=== PATIENT | male | born 1960 | race Hispanic/Latino ===

== ENCOUNTER 2016-12-09 07:10 | Day surgery (SDC) | payer MEDICARE ==
[2016-12-07 14:35] VITALS: BMI 19.1
[2016-12-09 08:38] VITALS: O2SAT 96
[2016-12-09] MEDS ORDERED: Bupivacaine 0.5% Inj(30mL) ONE (09:16)
[2016-12-09] MEDS ORDERED: MethylPREDNISolone Depo 40 mg/ml Inj ONE (09:16)
[2016-12-09] MEDS ORDERED: Iohexol 240 (50 ml) ONE (09:17)
[2016-12-09] MEDS ORDERED: Lidocaine 2% Inj (20ml) ONE (09:17)
[2016-12-09] MEDS ORDERED: Midazolam 2 MG/2 ML VIAL ONE ×2 (09:41→09:59)
[2016-12-09] MEDS ORDERED: Lactated Ringer's 1,000 ML IV ONE ×2 (09:42→10:08)
[2016-12-09] MEDS ORDERED: ceFAZolin IV 2 gm in Dextrose 1 GM/50 ML BAG IVPB ONE (09:55)
[2016-12-09] MEDS ORDERED: Oxycodone/Acetaminophen 5/325 mg Tab PO PRN (10:23)
--- NOTE | 2016-12-09 10:27 | PCM.SURG1 ---
Surgeon's Initial Post Op Note - Surgeon's Notes Surgeon: Maikol Du MD Slip Filler: None Type of Anesthesia: IV Sedation, Local Pre-Operative Diagnosis: Right hip #1 severe DJD. #2 GT bursitis Operative Findings: Right hip #1 severe DJD. #2 GT bursitis Post-Operative Diagnosis: Right hip #1 severe DJD. #2 GT bursitis Operation Performed: Right hip injection under flouorscopic guidance at. #1 intra-articular hip joint. #2 GT bursa Specimen/Specimens Removed: Specimen= none. complications= none. Injection contents= 2cc 2% lido w/o epi PF, 2cc 0.5% marcaine w/o epi PF, 80mg depo in 1cc Estimated Blood Loss: EBL {In ML}: 0 Blood Products Given: N/A Drains Used: No Drains Post-Op Condition: Good Date of Surgery/Procedure: 12/09/16 Time of Surgery/Procedure: 10:28
[2016-12-09 11:54] VITALS: BP 125/86; PULSE 78; RESP 18; TEMP 97.8
--- NOTE | 2016-12-10 10:27 | OP ---
PROCEDURE DATE: 12/09/2016 PREOPERATIVE DIAGNOSES: Right hip, 1. Severe degenerative joint disease. 2. Greater trochanteric bursitis. POSTOPERATIVE DIAGNOSES: Right hip, 1. Severe degenerative joint disease. 2. Greater trochanteric bursitis. PROCEDURES: Right hip injection under fluoroscopic guidance to; 1. Intraarticular hip injection. 2. Greater trochanteric bursa injection. SURGEON: Maikol Du M.D. BUSINESS PROFESSOR: None. TYPE OF ANESTHESIA: IV sedation with local anesthetic applied by surgeon. SPECIMEN: None. COMPLICATIONS: None. DRAINS: None. ESTIMATED BLOOD LOSS: 1 mL. DISPOSITION: The patient was awakened from IV sedation, transferred to the PACU in stable condition. He tolerated the procedure well. INJECTION CONTENT: Two injections in total were given, one localized to the intraarticular position of the hip joint and one localized to the greater trochanteric bursa; both containing a total of 5 mL which contained 2 mL of 2% lidocaine without epinephrine preservative free/2 mL of 0.5% Marcaine without epinephrine preservative free/80 mg of Depo-Medrol in 1 mL for a total of 5 mL mixture for the injection for both locations. INDICATIONS FOR PROCEDURE: The patient is a 56-year-old male with a past medical history significant for hypertension, diabetes, and hypercholesterolemia. He presents to the office for the first time under my care on 08/29/2016 with right hip pain, progressively worsening over the past few months prior to presentation in the office, but he noted pain started approximately 2 years ago. On his initial presentation in the office, he rated his right hip pain as 7/10 at rest and 10/10 with increased activity and motion. He localized the pain to two locations, one at the greater trochanteric bursa and the other location was in the groin representing the intraarticular hip joint itself. In the office, on initial presentation, he underwent x-rays of the right hip which showed severe degenerative joint disease. Physical examination revealed pain localized to the greater trochanteric bursa as well as the groin with limited range of motion of the hip from 0 to 90 degrees flexion with pain, past 90 degrees of flexion, 0 degrees of internal rotation due to pain, 10 degrees of external rotation, 10 degrees of abduction and 0 degrees of adduction allowed due to pain. He underwent injection in the office to the right hip greater trochanteric bursa on 08/29/2016 and 10/20/2016 office visits. Both visits had complete resolution of his greater trochanteric bursa pain after administration of the injection with remaining 7/10 groin pain and limited motion. We had a long discussion about treatment options which included total hip arthroplasty versus fluoroscopic-guided hip injections. The patient is very poor dentition and has not undergone injections in the past, so therefore we decided to proceed with the more conservative treatment option. He was indicated for right hip fluoroscopic-guided intraarticular injection with cortisone mixture/Depo-Medrol mixture as well as injection to the greater trochanteric bursa in the same setting under sedation. He was referred to his primary care physician, Dr. Nora Logan for preoperative medical evaluation and clearance and the procedure was scheduled at [facility]. CONTINUATION OF PROCEDURE: The patient was identified in the perioperative holding area and the right hip was marked for surgery. The risks, benefits, and alternative of the procedure were discussed in length with the patient with the risk including not limited to infection, neurovascular damage, anesthesia reactions, allergic reactions, synovitis, development of blood clots including DVT and PE, development of chronic pain and disability, increasing pain, anesthesia reactions including . After answering all of his questions, the patient understood the risk and wished to proceed with surgery and informed consent was obtained. In the office, on his preoperative visit and in the visits prior, the patient had watched the surgical animation videos and diagnosis animation videos and had a good understanding to what his diagnosis was as well as the two injections under fluoroscopic guidance. After brief discussion with anesthesia staff, perioperative IV antibiotics in the form of 2 g of Ancef were administered. The patient was taken to the operating room and placed in a well-padded operating room table that was radiolucent. An initial time-out was done with the surgeon, anesthesia staff, and OR staff, and all are in agreement with the patient, procedure to be done, and extremity to be operated on. IV sedation was administered without difficulty or complication. The right hip was prepped and draped in standard sterile fashion. Anatomical landmarks including the ASIS and greater trochanter were palpated and outlined and confirmed with fluoroscopic imaging. A final time-out was done with the surgeon, anesthesia staff, and OR staff, and all are in agreement with the patient, procedure to be done, and extremity to be operated on. A line was drawn down the long axis of the leg starting at the ASIS and a line was drawn perpendicular to the long axis of the leg starting at the tip of the greater trochanter. Care was taken to stay in the upper outer quadrant of this intersecting line to minimize the risk of neurovascular injury. Optimal entry point for the spinal needle was identified and confirmed in the upper outer quadrant. A 10 mL of 2% lidocaine without epinephrine preservative free were used to provide local anesthetic at the injection site. Once the local anesthetic had taken affect after a few minutes, the spinal needle was advanced through the skin up to the superior femoral head neck junction under fluoroscopic guidance. With the use of a 1:1 mixture of radiopaque contrast with 2% lidocaine without epinephrine preservative free, 2 mL of the contrast lidocaine mixture were injected intraarticular to confirm an intraarticular position to the spinal needle. A positive ring sign appeared and the contrast did pour on the inferior aspect of the hip joint. The spinal needle position was confirmed to be intraarticular and all excess contrast was aspirated from the hip joint and the final injection contents were injected with a 5 mL in total consisting of 2 mL of 2% lidocaine without epinephrine preservative free, 2 mL of 0.5% Marcaine without epinephrine preservative free, 1 mL of 80 mg of Depo-Medrol all injected in its entirety intraarticularly. Once the injection was complete, the spinal needle was removed and attention was then turned towards to the greater trochanteric bursa injection. The greater trochanter was palpated and with fluoroscopic imaging, the spinal needle was advanced and localized through palpation over the greater trochanter to confirm the fluoroscopic imaging and a second injection was given at the level of the greater trochanteric bursa along the lateral aspect of the greater trochanter, 5 mL in total consisting of 2 mL of 2% lidocaine without epinephrine preservative free/2 mL of 0.5% Marcaine without epinephrine preservative free/1 mL of 80 mg of Depo-Medrol were injected in its entirety and the spinal needle was removed. The two injection sites were then wiped dry and a sterile dressing was applied. The patient was then awakened from IV sedation, transferred to the PACU in stable condition. He tolerated the procedure well. I evaluate the patient in PACU and he has 0/10 pain rating to the greater trochanteric bursa or to the groin with ability to have, although limited range of motion without pain from 0 to 100 degrees flexion, 5 degrees internal rotation, 10 degrees external rotation, 20 degrees abduction and 10 degrees adduction with mechanical stop due to his advanced degenerative joint disease. Once again, we had successful response to both the greater trochanteric bursa injection and the intraarticular hip injection. DISPOSITION: The patient will be discharged home when he is recovered from his anesthesia. He is under the care of the crayon painter, Dr. Freddy Guthrie, who is providing him with pain medications in the form of Vicodin 10/325 which he will continue to use and has been advised that there may be a flare up of pain after local anesthetic wears off later tonight. He will be weightbearing as tolerated to the right lower extremity with no restrictions. He will follow up in my office in [facility] next week on Monday at 8 a.m., already has this postoperative appointment setup. He will contact me directly if there are any questions or concerns. Maikol Du MD
== END 2016-12-09 12:05 | disposition home or self-care (01) ==
LOC: C.SDS 07:10
PROVIDERS: ATTEND Student in an Organized Health Care Education/Training Program
DX: M16.11 Unilateral primary osteoarthritis, right hip (principal); M70.61 Trochanteric bursitis, right hip
CPT/HCPCS: 20610; 82948; J1030; J2250; J3010; J7120

== ENCOUNTER 2017-02-08 08:14 | Day surgery (SDC) | payer MEDICARE ==
[2016-12-07 14:35] VITALS: BMI 19.1
[2017-02-08 10:13] VITALS: RESP 18; TEMP 97.6
[2017-02-08] MEDS ORDERED: Bupivacaine HCl 0.25% PF (10 ml) Inj ONE ×2 (10:36→11:35)
[2017-02-08] MEDS ORDERED: Iohexol 240 (50 ml) ONE (10:37)
[2017-02-08] MEDS ORDERED: MethylPREDNISolone Depo 40 mg/ml Inj ONE ×2 (10:37→11:33)
[2017-02-08] MEDS ORDERED: Lactated Ringer's 1,000 ML IV ONE (11:35)
[2017-02-08] MEDS ORDERED: Midazolam 2 MG/2 ML VIAL ONE ×2 (11:38→11:44)
[2017-02-08] MEDS ORDERED: Propofol 10 mg/ml Inj (20 ML) ONE (11:44)
[2017-02-08 12:17] VITALS: O2SAT 100
[2017-02-08 12:27] VITALS: BP 136/80; PULSE 90
--- NOTE | 2017-02-08 13:14 | RAD ---
PROCEDURE: Intraoperative Fluoroscopy. HISTORY: LUMBAR RADCULOPATHY FINDINGS: Fluoroscopic assistance was provided for L4-5 S1 nerve block. Please
== END 2017-02-08 12:28 | disposition home or self-care (01) ==
LOC: C.SDS 08:14
PROVIDERS: ATTEND Anesthesiology Pain Medicine
DX: M51.16 Intervertebral disc disorders with radiculopathy, lumbar region (principal); E11.9 Type 2 diabetes mellitus without complications; I10 Essential (primary) hypertension; J45.909 Unspecified asthma, uncomplicated; F17.200 Nicotine dependence, unspecified, uncomplicated; Z79.84 Long term (current) use of oral hypoglycemic drugs; Z79.82 Long term (current) use of aspirin
CPT/HCPCS: 62323; 76000; 82948; J1030; J2250; J2704; J3010; J7120; Q9966

== ENCOUNTER 2017-03-22 07:12 | Day surgery (SDC) | payer MEDICARE ==
[2017-03-21 09:11] VITALS: BMI 38.7
[2017-03-22] MEDS ORDERED: Propofol 10 mg/ml Inj (20 ML) ONE ×2 (09:09→09:21)
[2017-03-22] MEDS: Lidocaine Hydrochloride 5 ML INJ ONE ×2 (09:15→09:26)
[2017-03-22] MEDS ORDERED: Lactated Ringer's 500 ML IV ONE ×2 (09:15)
[2017-03-22] MEDS: Bupivacaine HCl 0.25% PF (10 ml) Inj ONE ×2 (09:16→09:26)
[2017-03-22] MEDS: MethylPREDNISolone Depo 40 mg/ml Inj ONE ×3 (09:16→09:28)
[2017-03-22] MEDS ORDERED: Midazolam 2 MG/2 ML VIAL ONE (09:27)
[2017-03-22] MEDS: Iohexol 240 (50 ml) ONE ×2 (09:28→09:29)
--- NOTE | 2017-03-22 12:03 | CARD ---
APPROVED REPORT EKG Measurement Heart [id number] [id number] <Conclusion> Normal sinus rhythm Normal ECG
[2017-03-22 13:46] VITALS: BP 138/79; PULSE 89; RESP 20; TEMP 97.8; O2SAT 97
--- NOTE | 2017-03-22 13:53 | OP ---
PROCEDURE DATE: PREOPERATIVE DIAGNOSIS: Right hip osteoarthritis. POSTOPERATIVE DIAGNOSIS: Right hip osteoarthritis. PROCEDURE: Right hip joint injection. SURGEON: Freddy Guthrie MD. TYPE OF ANESTHESIA: Local MAC sedation. BLOOD LOSS: 1 mL. COMPLICATIONS: None. BRIEF HISTORY AND INDICATIONS: The patient with hip joint pain and arthritis of hip. The patient came today for intraarticular hip joint injection under fluoroscopic guidance. PROCEDURE IN DETAIL: After informed consent of the procedure, risks and benefits were explained. The patient was brought back to the procedure room, placed in supine position, routine monitors were applied. The patient's hip joint was imaged using fluoroscopy. Area to be injected was prepped and draped in sterile fashion. A 27-gauge needle was used to inject lidocaine 1% subcutaneously at the entry point of spinal needle. Subsequently, a 22-gauge 3.5 inch spinal needle was advanced into the right hip joint. Needle placement was confirmed in AP views with fluoroscopy. Omnipaque dye 2 mL was injected showing good intraarticular spread. Subsequently, Depo-Medrol 40 mg mixed with 4 mL of 1% lidocaine preservative free was injected with negative intermittent aspiration. No heme or CSF was aspirated throughout. No paresthesias were elicited throughout. The patient tolerated the procedure well. Vital signs remained stable. The patient was brought back to the recovery room in stable condition. Report of reduction in joint pain postprocedure. DISPOSITION: The patient was given instructions to follow up in 2 weeks and discharged to postop area in stable condition. No events or complications. Freddy Guthrie MD
--- NOTE | 2017-03-22 15:09 | RAD ---
PROCEDURE: Intraoperative Fluoroscopy. HISTORY: OSTEOARTHRITIS RT. HIP FINDINGS: Fluoroscopic assistance was provided for right hip injection.. Please (mGy): 1.40. Total fluoroscopic time (continuous mode) utilized during the procedure: 13.3 seconds.
== END 2017-03-22 10:28 | disposition home or self-care (01) ==
LOC: C.SDS 07:12
PROVIDERS: ATTEND Anesthesiology Pain Medicine
DX: M16.11 Unilateral primary osteoarthritis, right hip (principal); E11.9 Type 2 diabetes mellitus without complications; I10 Essential (primary) hypertension; Z79.84 Long term (current) use of oral hypoglycemic drugs
CPT/HCPCS: 20610; 82948; 93005; J1030; J2250; J2704; J7120; Q9966

== ENCOUNTER 2017-03-29 09:37 | Inpatient (IN) | payer MEDICARE ==
[2017-03-29 09:37] VITALS: BMI 38.7
--- NOTE | 2017-03-29 11:41 | RAD ---
PROCEDURE: Right Hip Radiographs. HISTORY: Pain COMPARISON: None. FINDINGS: BONES: There is flattening of the right femoral head with subarticular sclerosis. There is also an acute nondisplaced fracture in the femoral head. The pelvic ring is intact. Bone alignment is normal. JOINTS: There is severe degenerative osteoarthrosis in the right hip joint with near complete loss of superolateral joint space and mild lateral subluxation. There is mild degenerative osteoarthrosis in the left hip joint. SOFT TISSUES: Normal. OTHER FINDINGS: There are multiple phleboliths in the pelvis. IMPRESSION: 1. Acute nondisplaced fracture in the right femoral head. 2. 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
[2017-03-29] MEDS ORDERED: Morphine 4 MG/ML VIAL ONE (12:09)
[2017-03-29 12:25] LABS: BASO # 0.1 K/uL (0.0-0.2); BASO % 0.5 % (0.0-2.0); EOS # 0.1 K/uL (0.0-0.7); EOS % 0.9 % (0.0-4.0); HEMATOCRIT 46.2 % (35.0-51.0); LYMPH # 2.1 K/uL (1.0-4.3); LYMPH % 20.2 % (20.0-40.0); MEAN CELL VOLUME 91.9 fL (80.0-94.0); MEAN CORPUSCULAR HEMOGLOBIN 31.2 pg (27.0-31.0); MEAN PLATELET VOLUME 9.3 fL (7.2-11.7); MONO # 0.8 K/uL (0.0-0.8); MONO % 8.1 % (0.0-10.0); NRBC % 0.1 % (0.0-2.0); RED CELL DISTRIBUTION WIDTH 13.3 % (11.5-14.5); WHITE BLOOD COUNT 10.2 K/uL (4.8-10.8)
[2017-03-29 12:38] LABS: INR 1.1
[2017-03-29 12:41] LABS: ALB/GLOB RATIO 1.1 (1.0-2.1); ALKALINE PHOSPHATASE 101 U/L (38-126); ALT/SGPT 48 U/L (21-72); AST/SGOT 25 U/L (17-59); BILIRUBIN,TOTAL 0.8 mg/dL (0.2-1.3); BLOOD UREA NITROGEN 10 mg/dL (9-20); CALCIUM 8.3 mg/dl (8.6-10.4); CARBON DIOXIDE 29 mmol/L (22-30); CHLORIDE 98 mmol/L (98-107); GFR AFRICAN-AMERICAN > 60; GLUCOSE,RANDOM 129 mg/dL (75-110); POTASSIUM 2.9 mmol/L (3.6-5.2); SODIUM 133 mmol/L (132-148); TOTAL PROTEIN 7.4 g/dL (6.3-8.3)
[2017-03-29] MEDS ORDERED: Potassium Chloride 20 mEq ER Tab PO STA (12:47)
--- NOTE | 2017-03-29 12:51 | C.PDOC ---
History Of Present Illness Pt has chronic right hip pain and has had a steroid injection by Pain Management last week. However pain became worse and is now severe. Pt is unable to ambulate. He denies any specific injury. Time Seen by Provider: 03/29/17 10:28 Chief Complaint (Nursing): Hip Pain History Per: Patient, EMS Onset/Duration Of Symptoms: Days Current Symptoms Are (Timing): Worse Severity: Severe Additional History Per: Prior Records Past Medical History Reviewed: Historical Data, Nursing Documentation, Vital Signs Vital Signs: Last Vital Signs Temp 98.0 F 03/29/17 12:32 Pulse 80 03/29/17 12:32 Resp 20 03/29/17 12:32 BP 136/78 03/29/17 12:32 Pulse Ox 95 03/29/17 12:32 - Medical History PMH: HTN, Hypercholesterolemia - [facility] Procedures ATTACH PEDICLE GRAFT NEC (12/23/13) INSERT ENDOTRACHEAL TUBE (12/23/13) OTH & OPEN REP OTH HERNIA OF ANTER ABD WALL W GRF OR PROSTH (12/23/13) OTHER OPEN INCISIONAL HERNIA REPAIR WITH GRAFT OR PROSTHESIS (03/24/14) Family History: States: Unknown Family Hx - Social History Hx Alcohol Use: No Hx Substance Use: No Review Of Systems Except As Marked, All Systems Reviewed And Found Negative. Constitutional: Negative for: Fever, Weakness Cardiovascular: Negative for: Chest Pain Respiratory: Negative for: Shortness of Breath Gastrointestinal: Negative for: Abdominal Pain Musculoskeletal: Positive for: Leg Pain (right). Negative for: Neck Pain, Back Pain Skin: Negative for: Rash Neurological: Negative for: Weakness, Numbness, Seizures, Altered Mental Status Physical Exam - Physical Exam Appears: Other (Unconfortable in pain) Skin: Normal Color, Warm, Dry Head: Atraumatic, Normacephalic Eye(s): bilateral: Normal Inspection, PERRL, EOMI Neck: Normal ROM, Supple Cardiovascular: Rhythm Regular Respiratory: Normal Breath Sounds, No Accessory Muscle Use Gastrointestinal/Abdominal: Soft, No Tenderness Extremity: Tenderness (right hip area) Extremity: Right: Limited ROM To Joint (Hip, due to pain), Bilateral: Pelvis- Stable Pulses: Right Dorsalis Pedis: Normal Neurological/Psych: Oriented x3, Normal Motor, Normal Sensation ED Course And Treatment - Laboratory Results Result Diagrams: 03/29/17 12:07 03/29/17 12:07 Interpretation Of Abnormal: Mild hypokalemia O2 Sat by Pulse Oximetry: 95 Pulse Ox Interpretation: Normal - Other Rad Right hip x-rays X-Ray: Viewed By Me, Read By Radiologist Interpretation: IMPRESSION: 1. Acute nondisplaced fracture in the right femoral head. 2. 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 Progress - Interventions Interventions:: Observation - Medications Administered Intravenous: Opiate - Data Reviewed Data Reviewed: Lab, Diagnostic imaging, Old records - Patient Status Patient status: Partially improved - Continuity of Care Discussed patient case with:: Patient, ED Nurse, Covering for PMD - Patient Plan Patient Plan: Admission Disposition Discussed With : Nora Logan Comment: He accepted pt on his service. Doctor Will See Patient In The: Hospital Counseled Patient/Family Regarding: Studies Performed, Diagnosis - Disposition Disposition: HOSPITALIZED Disposition Time: 12:54 Condition: FAIR - Clinical Impression Clinical Impression: Closed right hip fracture
[2017-03-29] MEDS ORDERED: Potassium Chloride 20 mEq ER Tab PO ONE (13:01)
--- NOTE | 2017-03-29 14:05 | CP.PCM.PN ---
Objective - Vital Signs/Intake and Output Vital Signs (last 24 hours): Temp Pulse Resp BP Pulse Ox 98.0 F 80 20 136/78 95 03/29/17 12:32 03/29/17 12:32 03/29/17 12:32 03/29/17 12:32 03/29/17 12:56 - Labs Labs: 03/29/17 12:07 03/29/17 12:07 PT 12.2 SECONDS (9.7-12.2) 03/29/17 12:07 INR 1.1 03/29/17 12:07 APTT 32 SECONDS (21-34) 03/29/17 12:07
[2017-03-29] MEDS ORDERED: HYDROmorphone 1 mg/ml ISec ONE (21:17)
[2017-03-29] MEDS: HYDROmorphone 1 mg/ml ISec IVP PRN (21:18)
[2017-03-29] MEDS ORDERED: Hydrocodone/Acetaminophen 5 mg /300 mg Tab PO ONE (22:26)
[2017-03-29] MEDS: Hydrocodone/Acetaminophen 5 mg /300 mg Tab PO SCH (22:26)
--- NOTE | 2017-03-29 22:53 | CT ---
EXAM: CT Right Lower Extremity Without Intravenous Contrast, Hip CLINICAL HISTORY: 56 years old, male; Pain; Hip; Right; Additional info: Rt hip fracture TECHNIQUE: Axial computed tomography images of the right hip without intravenous contrast. All CT scans at this facility use one or more dose reduction techniques, viz.: automated exposure control; ma/kV adjustment per patient size (including targeted exams where dose is matched to indication; i.e. head); or iterative reconstruction technique. Coronal and sagittal reformatted images were created and reviewed. COMPARISON: No relevant prior studies available. FINDINGS: Bones/joints: Significant degenerative disease, with subchondral cyst formation and femoral acetabular joint space narrowing, along with osteophyte formation. No acute fracture. No dislocation. Soft tissues: Unremarkable. IMPRESSION: Significant degenerative disease, without acute fracture. If clinical suspicion persists, followup with noncontrast enhanced MRI of the right hip, for further evaluation, as subtle nondisplaced fractures may be occult on CT.
[2017-03-30] MEDS ORDERED: HYDROmorphone 1 mg/ml ISec ONE (02:08)
[2017-03-30] MEDS: HYDROmorphone 1 mg/ml ISec IVP PRN ×5 (02:13→21:44)
[2017-03-30] MEDS: Hydrocodone/Acetaminophen 5 mg /300 mg Tab PO SCH ×4 (06:03→23:06)
[2017-03-30] MEDS ORDERED: Hydrocodone/Acetaminophen 5 mg /300 mg Tab PO ONE (06:03)
--- NOTE | 2017-03-30 08:20 | CP.PCM.CON ---
History of Present Illness - History of Present Illness History of Present Illness: Orthopedic consultation Dr. Buitrago 56M complains of severe right hip pain x last 3 days and inability to walk. He says he has had progressive hip pain over years, 710 pain, and went for intraarticular injection 03/[address] Guthrie. He says he was good for 2-3 days and then the pain became severe. He has never seen an orthopedic surgeon before. He has had prior hip injections with good relief of pain. Denies any trauma or falls recently. He lives alone 4th floor walk up. No recent illness, no CP/SOB/dizziness at this time. He ambulates with cane. Review of Systems - Review of Systems All systems: reviewed and no additional remarkable complaints except - Constitutional Additional comments: no recent illness - Cardiovascular Additional comments: denies CP - Respiratory Additional comments: denies SOB - Musculoskeletal Musculoskeletal: As Per HPI - Integumentary Additional comments: no swelling - Neurological Neurological: As Per HPI - Endocrine Endocrine: absent: As Per HPI, Change in Body Appearance, Change in Libido, Cold Intolorance, Deepening of Voice, Excessive Sweating, Fatigue, Flushing, Heat Intolorance, Increase in Ring/Shoe/Hat Size, Palpitations, Polydipsia, Polyphagia, Polyuria, Other - Hematologic/Lymphatic Hematologic: absent: As Per HPI, Easy Bleeding, Easy Bruising, Lymphadenopathy, Other Past Patient History - Past Medical History & Family History Past Medical History?: Yes Past Family History: Reviewed and not pertinent - Past Social History Smoking Status: Heavy Smoker > 10 Cigarettes Daily Home Situation {Lives}: Alone - CARDIAC Hx Cardiac Disorders: Yes Hx Hypercholesterolemia: Yes Hx Hypertension: Yes - NEUROLOGICAL Hx Neurological Disorder: Yes (PERIPHERAL NEUROPATHY) - ENDOCRINE/METABOLIC Hx Endocrine Disorders: Yes Hx Diabetes Mellitus Type 2: Yes - MUSCULOSKELETAL/RHEUMATOLOGICAL Hx Musculoskeletal Disorders: Yes Hx Osteoarthritis: Yes - PSYCHIATRIC Hx Substance Use: No - SURGICAL HISTORY Hx Surgeries: Yes Hx Herniorrhaphy: Yes (UMBILICAL X 2 WITH MESH) Other/Comment: HX: RIGHT HIP INJECTION 12/09/16. selective lumbar nerve root injection - ANESTHESIA Hx Anesthesia: Yes Hx Anesthesia Reactions: Yes (larygospasm required re-intubation post op hernia 2013) Hx Malignant Hyperthermia: No Meds Allergies/Adverse Reactions: Allergies Allergy/AdvReac Type Severity Reaction Status Date / Time No Known Allergies Allergy Verified 03/29/17 09:41 - Medications Medications: Current Medications Acetaminophen/Hydrocodone Bitart (Vicodin 5 Mg-300 Mg) 1 tab PO Q8 [facility] Last Admin: 03/30/17 06:03 Dose: 1 tab Amlodipine Besylate (Norvasc) 10 mg PO DAILY [facility] Furosemide (Lasix) 20 mg PO DAILY [facility] Gabapentin (Neurontin) 100 mg PO TID [facility] Hydromorphone HCl (Dilaudid) 1 mg IVP Q4H PRN PRN Reason: Pain, moderate (4-7) Last Admin: 03/30/17 02:13 Dose: 1 mg Metformin HCl (Glucophage) 1,000 mg PO BID [facility]HA[facility] Sitagliptin Phosphate (Januvia) 50 mg PO DAILY [facility]HA[facility] Physical Exam - Constitutional Appears: Well, No Acute Distress - Head Exam Head Exam: ATRAUMATIC - Neck Exam Neck exam: Positive for: Full Rom, Normal Inspection - Respiratory Exam Respiratory Exam: NORMAL BREATHING PATTERN - Cardiovascular Exam Additional comments: +DP/PT pulses - Expanded Lower Extremities Exam Right Hip exam: normal inspection (complains of significant pain with AROM of hip) Knee exam: normal inspection Ankle exam: FULL ROM, NORMAL INSPECTION Foot/Toe exam: full ROM Neuro vacular tendon exam: no vascular compromise - Neurological Exam Neurological exam: Alert, Oriented x3 - Psychiatric Exam Psychiatric exam: Anxious, Normal Affect - Skin Skin Exam: Dry, Intact, Normal Color, Warm Results - Vital Signs Recent Vital Signs: Last Vital Signs Temp 97.5 F L 03/30/17 07:00 Pulse 85 03/30/17 07:00 Resp 20 03/30/17 07:00 BP 149/93 H 03/30/17 07:00 Pulse Ox 92 L 03/30/17 07:00 - Labs Result Diagrams: 03/30/17 09:36 03/30/17 09:36 Labs: Laboratory Results - last 24 hr 03/29/17 03/29/17 03/29/17 12:07 12:07 12:07 WBC 10.2 RBC 5.03 Hgb 15.7 Hct 46.2 MCV 91.9 D MCH 31.2 H MCHC 34.0 RDW 13.3 Plt Count 210 MPV 9.3 Neut % (Auto) 70.3 Lymph % (Auto) 20.2 Kimble % (Auto) 8.1 Eos % (Auto) 0.9 Baso % (Auto) 0.5 Neut # 7.2 H Lymph # 2.1 Kimble # 0.8 Eos # 0.1 Baso # 0.1 PT 12.2 INR 1.1 APTT 32 Sodium 133 Potassium 2.9 L Chloride 98 Carbon Dioxide 29 Anion Gap 9 L BUN 10 Creatinine 0.5 L Est GFR ( Amer) > 60 Est GFR (Non-Af Amer) > 60 POC Glucose (mg/dL) Random Glucose 129 H Calcium 8.3 L Total Bilirubin 0.8 AST 25 ALT 48 Alkaline Phosphatase 101 Total Protein 7.4 Albumin 4.0 Globulin 3.5 Albumin/Globulin Ratio 1.1 03/29/17 03/30/17 22:16 08:00 WBC RBC Hgb Hct MCV MCH MCHC RDW Plt Count MPV Neut % (Auto) Lymph % (Auto) Kimble % (Auto) Eos % (Auto) Baso % (Auto) Neut # Lymph # Kimble # Eos # Baso # PT INR APTT Sodium Potassium Chloride Carbon Dioxide Anion Gap BUN Creatinine Est GFR ( Amer) Est GFR (Non-Af Amer) POC Glucose (mg/dL) 154 H 139 H Random Glucose Calcium Total Bilirubin AST ALT Alkaline Phosphatase Total Protein Albumin Globulin Albumin/Globulin Ratio - Impressions Impression: Patient Name / ID : ISAURO GRIMES W / [id number] Exam Date : 03/29/2017 10:57:15 ( Approved ) Study Comment : Sex / Age : M / 56Y Creator : Leonela Roberson MD Dictator : Leonela Roberson MD Animal Treatment Investigator : Technology Trainer : Leonela Roberson MD Approver2 : Report Date : 03/29/2017 11:40:01 My Comment : PROCEDURE: Right Hip Radiographs. HISTORY: Pain COMPARISON: None. FINDINGS: BONES: There is flattening of the right femoral head with subarticular sclerosis. There is also an acute nondisplaced fracture in the femoral head. The pelvic ring is intact. Bone alignment is normal. JOINTS: There is severe degenerative osteoarthrosis in the right hip joint with near complete loss of superolateral joint space and mild lateral subluxation. There is mild degenerative osteoarthrosis in the left hip joint. SOFT TISSUES: Normal. OTHER FINDINGS: There are multiple phleboliths in the pelvis. IMPRESSION: 1. Acute nondisplaced fracture in the right femoral head. 2. 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 atient Name / ID : ISAURO GRIMES W / [id number] Exam Date : 03/29/2017 22:00:44 ( Approved ) Study Comment : Sex / Age : M / 56Y Creator : NICHOLE AVILA Dictator : Animal Treatment Investigator : Technology Trainer : NICHOLE AVILA Approver2 : Report Date : 03/29/2017 22:53:00 My Comment : [facility] Division of Radiology [address] [place] [address] Tel. no. Patient Name: CORNELIO BOX Pt. Address: [address] [place] [address] Rec #: [id number] [place] [address]: Iftikhar OMALLEY, Deon Gaffney III Pt CELL [place] [facility] [place] [facility] [place] : 1960 Male Age: 56 Order #: [id number] Reason for exam: RT HIP FRACTURE CT Scan HIP WITHOUT CONTRAST RIGHT Exam Date: 03/29/17 This imaging exam was performed at [facility] EXAM: CT Right Lower Extremity Without Intravenous Contrast, Hip CLINICAL HISTORY: 56 years old, male; Pain; Hip; Right; Additional info: Rt hip fracture TECHNIQUE: Axial computed tomography images of the right hip without intravenous contrast. All CT scans at this facility use one or more dose reduction techniques, viz.: automated exposure control; ma/kV adjustment per patient size (including targeted exams where dose is matched to indication; i.e. head); or iterative reconstruction technique. Coronal and sagittal reformatted images were created and reviewed. COMPARISON: No relevant prior studies available. FINDINGS: Bones/joints: Significant degenerative disease, with subchondral cyst formation and femoral acetabular joint space narrowing, along with osteophyte formation. No acute fracture. No dislocation. Soft tissues: Unremarkable. IMPRESSION: Significant degenerative disease, without acute fracture. If clinical suspicion persists, followup with noncontrast enhanced MRI of the right hip, for further evaluation, as subtle nondisplaced fractures may be occult on CT. Dictated By: Nichole Avila MD Dictated Date/Time: 03/29/172252 Signed By: Nichole Avila MD Date Signed: 2252 Transcribed By: [facility]REC Transcribe Date/Time : 03/29/172252 ASHIA/WADE Assessment & Plan (1) Avascular necrosis of femur head, right Assessment and Plan: Imaging reviewed by Dr. Buitrago Advanced right hip DJD with AVN superimposed head fracture/collapse indicated for total hip replacement patient will need medical optimization/clearance prior to surgery patient needs cardiac clearance as well, last echo in system shows pulmonary htn /diastolic dysfunction patient also increased risk for anesthesia complications with history of reintubation for stridor after hernia repair in 2013, consider pulmonary f/u smoking cessation advised will resume diet at this time and plan for OR when optimized d/w Dr. Buitrago, agrees with above, will schedule for Tuesday 04/03 pending optimization T&C f/u u/a f/u potassium (3.4, defer further mgmt to medical team) Status: Chronic (2) Primary osteoarthritis of right hip Assessment and Plan: see above Status: Chronic (3) Closed fracture of head of right femur Assessment and Plan: see above Status: Acute
[2017-03-30 09:41] LABS: BASO % 0.5 % (0.0-2.0); EOS # 0.1 K/uL (0.0-0.7); EOS % 1.3 % (0.0-4.0); HEMATOCRIT 45.7 % (35.0-51.0); LYMPH # 2.1 K/uL (1.0-4.3); MEAN CELL VOLUME 91.6 fL (80.0-94.0); MEAN CORPUSCULAR HEMOGLOBIN 31.2 pg (27.0-31.0); MEAN PLATELET VOLUME 8.9 fL (7.2-11.7); MONO # 0.8 K/uL (0.0-0.8); MONO % 8.1 % (0.0-10.0); RED CELL DISTRIBUTION WIDTH 13.4 % (11.5-14.5); WHITE BLOOD COUNT 10.1 K/uL (4.8-10.8)
[2017-03-30 09:54] LABS: ALKALINE PHOSPHATASE 100 U/L (38-126); ALT/SGPT 51 U/L (21-72); AST/SGOT 22 U/L (17-59); BILIRUBIN,TOTAL 0.7 mg/dL (0.2-1.3); BLOOD UREA NITROGEN 12 mg/dL (9-20); CALCIUM 8.7 mg/dl (8.6-10.4); CARBON DIOXIDE 29 mmol/L (22-30); CHLORIDE 101 mmol/L (98-107); GFR AFRICAN-AMERICAN > 60; GLUCOSE,RANDOM 106 mg/dL (75-110); POTASSIUM 3.4 mmol/L (3.6-5.2); SODIUM 133 mmol/L (132-148); TOTAL PROTEIN 7.7 g/dL (6.3-8.3)
[2017-03-30] MEDS ORDERED: Enoxaparin 30 mg Syringe SC SCH (10:00)
[2017-03-30] MEDS ORDERED: Naproxen 550 mg Tab PO SCH (10:00)
[2017-03-30] MEDS: Enoxaparin 40 mg Syringe SC SCH (10:54)
[2017-03-30] MEDS ORDERED: Potassium Chloride 20 mEq ER Tab PO ONE (11:17)
[2017-03-30 13:20] LABS: URINE BILIRUBIN NEGATIVE (NEGATIVE); URINE BLOOD NEGATIVE (NEGATIVE); URINE COLOR Yellow (YELLOW); URINE GLUCOSE (UA) 3+ mg/dL (Normal); URINE KETONE TRACE mg/dL (NEGATIVE); URINE LEUKOCYTE ESTERASE NEG Leu/uL (Negative); URINE PROTEIN 2+ mg/dL (NEGATIVE); URINE UROBILINOGEN NORMAL mg/dL (0.2-1.0)
--- NOTE | 2017-03-30 13:26 | RAD ---
HISTORY: preop COMPARISON: 03/21/2014 TECHNIQUE: Chest PA and lateral FINDINGS: LUNGS: No infiltrate. Minimal linear scar/ atelectasis at left lung base. PLEURA: No significant pleural effusion identified. No pneumothorax apparent. CARDIOVASCULAR: Normal. OSSEOUS STRUCTURES: No significant abnormalities. VISUALIZED UPPER ABDOMEN: Normal. OTHER FINDINGS: None. IMPRESSION: No acute infiltrate
[2017-03-30 13:35] LABS: WBC URINE 1 /hpf (0-5)
--- NOTE | 2017-03-30 15:41 | CP.PCM.PN ---
Subjective - Date & Time of Evaluation Date of Evaluation: 03/30/17 Time of Evaluation: 10:00 - Subjective Subjective: PGY3 on medicine Dr. Logan service: 56M PMHx HTN and DM presented with worsening right hip pain. Pain started over an year ago and received intraarticular injection on 03/[address] Guthrie. Pt denied falling or trauma to the area. Pt also had history of umbilical hernia repair x2 in 2014 and actively smokes a pack a day for past 30+ years. Pt had ECHO in 2013 with concerns for pulmonary hypertension. Objective - Vital Signs/Intake and Output Vital Signs (last 24 hours): Temp Pulse Resp BP Pulse Ox 97.5 F L 70 20 130/81 92 L 03/30/17 07:00 03/30/17 07:00 03/30/17 07:00 03/30/17 10:38 03/30/17 07:00 - Medications Medications: Current Medications Acetaminophen/Hydrocodone Bitart (Vicodin 5 Mg-300 Mg) 1 tab PO Q8H [facility] Stop: 04/06/17 15:46 Amlodipine Besylate (Norvasc) 10 mg PO DAILY [facility] Last Admin: 03/30/17 10:41 Dose: 10 mg Enoxaparin Sodium (Lovenox) 40 mg SC DAILY [facility] Last Admin: 03/30/17 10:54 Dose: 40 mg Furosemide (Lasix) 20 mg PO DAILY [facility] Last Admin: 03/30/17 10:38 Dose: 20 mg Gabapentin (Neurontin) 100 mg PO TID [facility] Last Admin: 03/30/17 15:00 Dose: 100 mg Hydromorphone HCl (Dilaudid) 1 mg IVP Q4H PRN PRN Reason: Pain, moderate (4-7) Last Admin: 03/30/17 12:58 Dose: 1 mg Metformin HCl (Glucophage) 1,000 mg PO BID [facility] Last Admin: 03/30/17 10:36 Dose: 1,000 mg Sitagliptin Phosphate (Januvia) 50 mg PO DAILY [facility] Last Admin: 03/30/17 11:02 Dose: 50 mg - Labs Labs: 03/30/17 09:36 03/30/17 09:36 PT 12.2 SECONDS (9.7-12.2) 03/29/17 12:07 INR 1.1 03/29/17 12:07 APTT 32 SECONDS (21-34) 03/29/17 12:07 - Constitutional Appears: Non-toxic, No Acute Distress - Head Exam Head Exam: NORMOCEPHALIC - Eye Exam Eye Exam: Normal appearance Pupil Exam: NORMAL ACCOMODATION - ENT Exam ENT Exam: Mucous Membranes Moist - Respiratory Exam Respiratory Exam: Clear to Ausculation Bilateral, NORMAL BREATHING PATTERN. absent: Wheezes - Cardiovascular Exam Cardiovascular Exam: REGULAR RHYTHM, +S1, +S2. absent: Gallop, Rubs - GI/Abdominal Exam GI & Abdominal Exam: Soft, Normal Bowel Sounds. absent: Tenderness - Extremities Exam Additional comments: right hip tenderness on palpation - Neurological Exam Neurological Exam: Alert, Awake, Oriented x3 - Psychiatric Exam Psychiatric exam: Normal Mood - Skin Skin Exam: Intact Assessment and Plan - Assessment and Plan (Free Text) Assessment: Right hip fracture Xray showed right femoral head fracture with possible avascular necrosis. Ortho Dr. Buitrago consulted, help appreciated. Plan for total hip replacement on Monday. Vicodin 5/300mg PO q8H PRN. Dilaudid 1mg IV q4H pRN. F/U preop EKG. F/U ECHO due to hx of pulmonary hypertension mentioned in 2014 report. HTN Continue Norvasc 10mg PO daily. DM Continue Metformin 1000mg PO BID, Januvia 50mg PO daily and Neurontin 100mg PO TID. F/U A1c. Prophylactic measure Lovenox, Pepcid, SCD. Management as 0per Dr. Logan.
--- NOTE | 2017-03-30 20:32 | CARD ---
APPROVED REPORT EXAM: Two-dimensional and M-mode echocardiogram with Doppler and color Doppler. Other Information Quality : TDSRhythm : INDICATION Pre-Op 2D DIMENSIONS IVSd1.1 (0.7-1.1cm)LVDd5.3 (3.9-5.9cm) PWd1.0 (0.7-1.1cm)LVDs3.3 (2.5-4.0cm) FS (%) 36.8 %LVEF (%)66.3 (>50%) M-Mode DIMENSIONS Left Atrium (MM)3.72 (2.5-4.0cm)Aortic Root3.24 (2.2-3.7cm) Aortic Cusp Exc.2.50 (1.5-2.0cm) Mitral Valve MV E Xtsoopyu06.8cm/sMV A Aiahnqoh07.8cm/sE/A ratio0.9 TDI E/Lateral E'0.0E/Medial E'0.0 Tricuspid Valve TR Peak Athbtsbi612ck/sTR Peak Gr.91nwHpRHMY43xsWd LEFT VENTRICLE The left ventricle is normal size. There is normal left ventricular wall thickness. The left ventricular function is normal. The left ventricular ejection fraction is within the normal range. about 65% No regional wall motion abnormalities noted. Transmitral Doppler flow pattern is Grade I-abnormal relaxation pattern. No left ventricle thrombus noted on this study. There is no ventricular septal defect visualized. There is no left ventricular aneurysm. There is no mass noted in the left ventricle. RIGHT VENTRICLE The right ventricle is normal size. There is normal right ventricular wall thickness. The right ventricular systolic function is normal. ATRIA The left atrium size is normal. The right atrium size is normal. The interatrial septum is intact with no evidence for an atrial septal defect. AORTIC VALVE The aortic valve is normal in structure and function. No aortic regurgitation is present. There is no aortic valvular stenosis. There is no aortic valvular vegetation. MITRAL VALVE The mitral valve is normal in structure and function. There is no evidence of mitral valve prolapse. There is no mitral valve stenosis. There is trace mitral valve regurgitation noted. TRICUSPID VALVE The tricuspid valve is normal in structure and function. There is no tricuspid valve regurgitation noted. There is no tricuspid valve prolapse or vegetation. There is no tricuspid valve stenosis. PULMONIC VALVE The pulmonary valve is normal in structure and function. There is no pulmonic valvular regurgitation. There is no pulmonic valvular stenosis. GREAT VESSELS The aortic root is normal in size. The ascending aorta is normal in size. The pulmonary artery is normal. The IVC is normal in size and collapses >50% with inspiration. PERICARDIAL EFFUSION The pericardium appears normal. There is no pleural effusion. <Conclusion> Normal LV systolic function Normal Doppler.
[2017-03-31] MEDS ORDERED: HYDROmorphone 1 mg/ml ISec IVP STA (00:23)
[2017-03-31] MEDS: HYDROmorphone 1 mg/ml ISec IVP PRN ×3 (03:34→20:31)
--- NOTE | 2017-03-31 06:18 | HP ---
HISTORY OF PRESENT ILLNESS: A 56-year-old male admitted to the hospital with complaint of intractable hip pain. The patient came to ER and found to have a hip fracture on admission. The patient has a history of alcohol abuse in the past. The patient has a history of hypertension. The patient is a heavy smoker. PHYSICAL EXAMINATION GENERAL: The patient is awake, alert, oriented. VITAL SIGNS: Temperature 98 and pulse 90. HEENT: Within normal limits. NECK: Supple. CHEST: Symmetrical. HEART: Regular. ABDOMEN: Obese. EXTREMITIES: No edema. There is tenderness of the left hip. ASSESSMENT AND PLAN: The patient suffers from fracture of the hip and vascular necrosis. So, at this point, we expect pain management and Orthopedic consult. Nora Logan MD
[2017-03-31 06:35] LABS: HEMATOCRIT 48.5 % (35.0-51.0); MEAN CELL VOLUME 92.2 fL (80.0-94.0); MEAN CORPUSCULAR HEMOGLOBIN 31.1 pg (27.0-31.0); MEAN CORPUSCULAR HGB CONC 33.7 g/dL (33.0-37.0); MEAN PLATELET VOLUME 9.7 fL (7.2-11.7); RED CELL DISTRIBUTION WIDTH 13.7 % (11.5-14.5); WHITE BLOOD COUNT 12.4 K/uL (4.8-10.8)
[2017-03-31 06:46] LABS: ALB/GLOB RATIO 1.3 (1.0-2.1); ALKALINE PHOSPHATASE 102 U/L (38-126); ALT/SGPT 44 U/L (21-72); AST/SGOT 28 U/L (17-59); BILIRUBIN,TOTAL 1.1 mg/dL (0.2-1.3); BLOOD UREA NITROGEN 11 mg/dL (9-20); CALCIUM 8.7 mg/dl (8.6-10.4); CARBON DIOXIDE 28 mmol/L (22-30); CHLORIDE 99 mmol/L (98-107); GFR AFRICAN-AMERICAN > 60; GLUCOSE,RANDOM 135 mg/dL (75-110); SODIUM 136 mmol/L (132-148); TOTAL PROTEIN 7.3 g/dL (6.3-8.3)
[2017-03-31] MEDS: Hydrocodone/Acetaminophen 5 mg /300 mg Tab PO SCH (07:54)
[2017-03-31] MEDS ORDERED: Ergocalciferol 50,000 Intl Units Cap PO SCH (08:00)
[2017-03-31] MEDS ORDERED: Dextrose 50% VIAL Inj (50 ml) IV PRN (08:14)
[2017-03-31] MEDS ORDERED: Glucagon Recombinant 1 mg Inj IM PRN (08:14)
--- NOTE | 2017-03-31 09:02 | CP.PCM.PN ---
Subjective - Date & Time of Evaluation Date of Evaluation: 03/31/17 Time of Evaluation: 09:00 - Subjective Subjective: Dr. Logan note: Patient seen and examined in room. He is complaining of severe right hip pain and says that none of the medication have been helpful in relieving the pain. Objective - Vital Signs/Intake and Output Vital Signs (last 24 hours): Temp Pulse Resp BP Pulse Ox 97.5 F L 80 14 126/75 92 L 03/31/17 00:10 03/31/17 00:10 03/31/17 00:10 03/31/17 00:10 03/31/17 00:10 Intake and Output: 03/31/17 03/31/17 06:59 18:59 Output Total 725 Balance -725 - Medications Medications: Current Medications Acetaminophen/Hydrocodone Bitart (Vicodin 5 Mg-300 Mg) 1 tab PO Q8H [facility] Stop: 04/06/17 15:46 Last Admin: 03/31/17 07:54 Dose: 1 tab Amlodipine Besylate (Norvasc) 10 mg PO DAILY [facility] Last Admin: 03/30/17 10:41 Dose: 10 mg Dextrose (Dextrose 50%) 0 ml IV STAT PRN; Protocol PRN Reason: Hypoglycemia Protocol Dextrose (Glutose 15) 0 gm PO ONCE PRN; Protocol PRN Reason: Hypoglycemia Protocol Enoxaparin Sodium (Lovenox) 40 mg SC DAILY [facility] Last Admin: 03/30/17 10:54 Dose: 40 mg Ergocalciferol (Drisdol 50,000 Intl Units Cap) 1 cap PO Q7D [facility] Famotidine (Pepcid) 20 mg PO BID [facility] Last Admin: 03/30/17 17:59 Dose: 20 mg Furosemide (Lasix) 20 mg PO DAILY [facility] Last Admin: 03/30/17 10:38 Dose: 20 mg Gabapentin (Neurontin) 100 mg PO TID [facility] Last Admin: 03/30/17 17:59 Dose: 100 mg Glucagon (Glucagen Diagnostic Kit) 0 mg IM STAT PRN; Protocol PRN Reason: Hypoglycemia Protocol Hydromorphone HCl (Dilaudid) 1 mg IVP Q4H PRN PRN Reason: Pain, moderate (4-7) Last Admin: 03/31/17 07:18 Dose: 1 mg Dextrose (Dextrose 5% In Water 1000 Ml) 1,000 mls @ 0 mls/hr IV .Q0M PRN; Protocol; Per Protocol PRN Reason: Hypoglycemia Protocol Insulin Human Regular (Novolin R) 0 unit SC ACHS [facility] PRN Reason: Protocol Metformin HCl (Glucophage) 1,000 mg PO BID [facility] Last Admin: 03/31/17 08:58 Dose: 1,000 mg Sitagliptin Phosphate (Januvia) 50 mg PO DAILY [facility] Last Admin: 03/31/17 08:59 Dose: 50 mg - Labs Labs: 03/31/17 06:18 03/31/17 06:18 PT 12.2 SECONDS (9.7-12.2) 03/29/17 12:07 INR 1.1 03/29/17 12:07 APTT 32 SECONDS (21-34) 03/29/17 12:07 - Constitutional Appears: Non-toxic, No Acute Distress - Eye Exam Eye Exam: Normal appearance - ENT Exam ENT Exam: Normal Exam - Respiratory Exam Respiratory Exam: Clear to Ausculation Bilateral. absent: Rales, Rhonchi, Wheezes - Cardiovascular Exam Cardiovascular Exam: REGULAR RHYTHM, RRR, +S1, +S2. absent: Gallop, Rubs - GI/Abdominal Exam GI & Abdominal Exam: Soft - Extremities Exam Extremities Exam: absent: Normal Inspection Additional comments: right hip tender - Psychiatric Exam Psychiatric exam: Normal Affect, Normal Mood Assessment and Plan - Assessment and Plan (Free Text) Assessment: Right hip fracture 03/31: Patient looks very comfortable in the bed, however when asked he states his medication does not help for pain, consulted pain management per reccs of the ortho team, continue with Dilauded, added Toradol, and morphine q4h prn for moderate pain. Dr. Betancourt consulted for cardiology risk assessment, surgery planned for Monday. Echo shows normal EF. Xray showed right femoral head fracture with possible avascular necrosis. Ortho Dr. Buitrago consulted, help appreciated. Plan for total hip replacement on Monday. Vicodin 5/300mg PO q8H PRN. Dilaudid 1mg IV q4H pRN. F/U preop EKG. F/U ECHO due to hx of pulmonary hypertension mentioned in 2014 report. HTN Continue Norvasc 10mg PO daily. DM Continue Metformin 1000mg PO BID, Januvia 50mg PO daily and Neurontin 100mg PO TID. F/U A1c. Prophylactic measure Lovenox, Pepcid, SCD. Management as 0per Dr. Logan.
[2017-03-31] MEDS ORDERED: HYDROmorphone 1 mg/ml ISec IVP ONE (09:15)
[2017-03-31] MEDS: oxyCODONE 10 mg ER Tab (oxyCONTIN) PO SCH ×2 (10:21→21:55)
[2017-03-31] MEDS: (Novolin R) Insulin Human Regular 100 units/ml vial SC SCH ×3 (12:00→22:00)
[2017-03-31] MEDS: Enoxaparin 40 mg Syringe SC SCH (12:46)
--- NOTE | 2017-03-31 13:19 | CP.PCM.PN ---
Subjective - Date & Time of Evaluation Date of Evaluation: 03/31/17 Time of Evaluation: 13:16 - Subjective Subjective: Patient complaining of severe pain in his hip. Advised patient that he will have more pain initially after total hip replacement and that he needs to prepare mentally for that as he will be starting PT immediately post op. Also encouraged NWB PT pre op as he refused yesterday. Objective - Vital Signs/Intake and Output Vital Signs (last 24 hours): Temp Pulse Resp BP Pulse Ox 97.5 F L 80 14 126/75 92 L 03/31/17 00:10 03/31/17 00:10 03/31/17 00:10 03/31/17 00:10 03/31/17 00:10 Intake and Output: 03/31/17 03/31/17 06:59 18:59 Output Total 725 Balance -725 - Medications Medications: Current Medications Amlodipine Besylate (Norvasc) 10 mg PO DAILY [facility] Last Admin: 03/31/17 12:51 Dose: 10 mg Dextrose (Dextrose 50%) 0 ml IV STAT PRN; Protocol PRN Reason: Hypoglycemia Protocol Dextrose (Glutose 15) 0 gm PO ONCE PRN; Protocol PRN Reason: Hypoglycemia Protocol Docusate Sodium (Colace) 100 mg PO TID [facility] Last Admin: 03/31/17 10:24 Dose: Not Given Enoxaparin Sodium (Lovenox) 40 mg SC DAILY [facility] Last Admin: 03/31/17 12:46 Dose: 40 mg Ergocalciferol (Drisdol 50,000 Intl Units Cap) 1 cap PO Q7D [facility] Last Admin: 03/31/17 12:43 Dose: 1 cap Famotidine (Pepcid) 20 mg PO BID [facility] Last Admin: 03/30/17 17:59 Dose: 20 mg Furosemide (Lasix) 20 mg PO DAILY [facility] Last Admin: 03/31/17 12:57 Dose: Not Given Gabapentin (Neurontin) 100 mg PO TID [facility] Last Admin: 03/31/17 10:00 Dose: Not Given Glucagon (Glucagen Diagnostic Kit) 0 mg IM STAT PRN; Protocol PRN Reason: Hypoglycemia Protocol Hydromorphone HCl (Dilaudid) 1 mg IVP Q4H PRN PRN Reason: Pain, severe (8-10) Dextrose (Dextrose 5% In Water 1000 Ml) 1,000 mls @ 0 mls/hr IV .Q0M PRN; Protocol; Per Protocol PRN Reason: Hypoglycemia Protocol Insulin Human Regular (Novolin R) 0 unit SC ACHS [facility] PRN Reason: Protocol Last Admin: 03/31/17 12:00 Dose: Not Given Metformin HCl (Glucophage) 1,000 mg PO BID [facility] Last Admin: 03/31/17 08:58 Dose: 1,000 mg Morphine Sulfate (Morphine) 2 mg IVP Q4 PRN PRN Reason: Pain, moderate (4-7) Last Admin: 03/31/17 12:45 Dose: 2 mg Oxycodone HCl (Oxycontin Extended Release Tab) 10 mg PO Q12 [facility] Stop: 04/03/17 10:01 Last Admin: 03/31/17 10:21 Dose: 10 mg Sitagliptin Phosphate (Januvia) 50 mg PO DAILY [facility] Last Admin: 03/31/17 08:59 Dose: 50 mg - Labs Labs: 03/31/17 06:18 03/31/17 06:18 PT 12.2 SECONDS (9.7-12.2) 03/29/17 12:07 INR 1.1 03/29/17 12:07 APTT 32 SECONDS (21-34) 03/29/17 12:07 - Extremities Exam Additional comments: +ROM ankle/toes, sensation intact +DP/PT pulses calves soft NT neg homans Assessment and Plan (1) Avascular necrosis of femur head, right Assessment & Plan: Do not recommend long acting narcotics for this patient, as the acute pain as well as chronic pain in the hip will be addressed with the total hip replacement , and post operative pain mgmt after joint replacement is to wean narcotics quickly post op consider pain mgmt consultation with Dr. Sheikh campo Cardio consultation pending plan THR Monday pending optimization Status: Chronic (2) Primary osteoarthritis of right hip Status: Chronic (3) Closed fracture of head of right femur Status: Acute
--- NOTE | 2017-03-31 18:45 | CP.PCM.CON ---
History of Present Illness - History of Present Illness History of Present Illness: I was asked to evaluate patient by Dr Logan. Patient is a 56 year old male with PMH HTN, DM who presents with severe pain of the hip. The patient has noted pain of the right hip which became severe. The patient was noted to require hip surgery. He denies chest pain or dyspnea. Cardiovascular consultation is requested for preoperative risk assessment. Review of Systems - Constitutional Constitutional: absent: As Per HPI, Anorexia, Chills, Daytime Sleepiness, Excessive Sweating, Fatigue, Fever, Frequent Falls, Headache, Increased Appetite , Lethargy, Malaise, Night Sweats, Snoring, Sleep Apnea, Weight Gain, Weight Loss, Weakness, Other - EENT Eyes: absent: As Per HPI, Blind Spots, Blurred Vision, Change in Vision, Decreased Night Vision, Diplopia, Discharge, Dry Eye, Exophthalmos, Floaters, Irritation, Itchy Eyes, Loss of Peripheral Vision, Pain, Photophobia, Requires Corrective Lenses, Sees Flashes, Spots in Vision, Tunnel Vision, Other Visual Disturbances, Loss of Vision, Other Nose/Mouth/Throat: absent: As Per HPI, Epistaxis, Nasal Congestion, Nasal Discharge, Nasal Obstruction, Nasal Trauma, Nose Pain, Post Nasal Drip, Sinus Pain, Sinus Pressure, Bleeding Gums, Change in Voice, Dental Pain, Dry Mouth, Dysphagia, Halitosis, Hoarsness, Lip Swelling, Mouth Lesions, Mouth Pain, Odynophagia, Sore Throat, Throat Swelling, Tongue Swelling, Facial Pain, Neck Pain, Neck Mass, Other - Cardiovascular Cardiovascular: absent: As Per HPI, Acrocyanosis, Chest Pain, Chest Pain at Rest , Chest Pain with Activity, Claudication, Diaphoresis, Dyspnea, Dyspnea on Exertion, Edema, Irregular Heart Rhythm, Pain Radiating to Arm/Neck/Jaw, Leg Edema, Leg Ulcers, Lightheadedness, Orthopnea, Palpitations, Paroxysmal Nocturnal Dyspnea, Pedal Edema, Radiating Pain, Rapid Heart Rate, Slow Heart Rate, Syncope, Other - Respiratory Respiratory: absent: As Per HPI, Cough, Dyspnea, Hemoptysis, Dyspnea on Exertion , Wheezing, Snoring, Stridor, Pain on Inspiration, Chest Congestion, Excessive Mucous Production, Change in Mucous Color, Pain with Coughing, Other - Gastrointestinal Gastrointestinal: absent: As Per HPI, Abdominal Pain, Belching, Bloating, Change in Bowel Habits, Change in Stool Character, Coffee Ground Emesis, Constipation, Cramping, Diarrhea, Dyspepsia, Dysphagia, Early Satiety, Excessive Flatus, Fecal Incontinence, Heartburn, Hematemesis, Hematochezia, Loose Stools, Melena, Nausea, Odynophagia, Temesmus, Vomiting, Other - Genitourinary Genitourinary: absent: As Per HPI, Change in Urinary Stream, Difficulty Urinating, Dysuria, Flank Pain, Hematuria, Pyuria, Nocturia, Urinary Incontinence, Urinary Frequency, Urinary Hesitance, Urinary Urgency, Voiding Freq/Small Amts, Freq UTI, Hx Renal/Bladder Calculi, Hx /Renal Surgery, Bladder Distension, Other - Musculoskeletal Musculoskeletal: Radiating Pain into Limb - Integumentary Integumentary: absent: As Per HPI, Acne, Alopecia, Bleeding Lesions, Change in Hair, Change in Nails, Change in Pigmentation, Changing Lesions, Dry Skin, Erythema, Furuncle, Hirsutism, Lesions, New Lesions, Non-Healing Lesions, Photosensitivity, Pruritus, Rash, Skin Pain, Skin Ulcer, Sores, Striae, Swelling , Unusual Bruising, Wounds, Jaundice, Other - Neurological Neurological: absent: As Per HPI, Abnormal Gait, Abnormal Hearing, Abnormal Movements, Abnormal Speech, Behavioral Changes, Burning Sensations, Confusion, Convulsions, Disequilibrium, Dizziness, Numbness, Focal Weakness, Frequent Falls , Headaches, Lack of Coordination, Loss of Vision, Memory Loss, Paresthesias, Radicular Pain, Restless Legs, Sensory Deficit, Syncope, Tingling, Tremor, Vertigo, Weakness, Other Visual Disturbances, Other - Endocrine Endocrine: absent: As Per HPI, Change in Body Appearance, Change in Libido, Cold Intolorance, Deepening of Voice, Excessive Sweating, Fatigue, Flushing, Heat Intolorance, Increase in Ring/Shoe/Hat Size, Palpitations, Polydipsia, Polyphagia, Polyuria, Other - Hematologic/Lymphatic Hematologic: absent: As Per HPI, Easy Bleeding, Easy Bruising, Lymphadenopathy, Other Past Patient History - Past Medical History & Family History Past Medical History?: Yes Past Family History: Reviewed and not pertinent - Past Social History Smoking Status: Heavy Smoker > 10 Cigarettes Daily Home Situation {Lives}: Alone - CARDIAC Hx Cardiac Disorders: Yes Hx Hypercholesterolemia: Yes Hx Hypertension: Yes - NEUROLOGICAL Hx Neurological Disorder: Yes (PERIPHERAL NEUROPATHY) - ENDOCRINE/METABOLIC Hx Diabetes Mellitus Type 2: Yes - MUSCULOSKELETAL/RHEUMATOLOGICAL Hx Musculoskeletal Disorders: Yes Hx Osteoarthritis: Yes - PSYCHIATRIC Hx Substance Use: No - SURGICAL HISTORY Hx Surgeries: Yes Hx Herniorrhaphy: Yes (UMBILICAL X 2 WITH MESH) Other/Comment: HX: RIGHT HIP INJECTION 12/09/16. selective lumbar nerve root injection - ANESTHESIA Hx Anesthesia: Yes Hx Anesthesia Reactions: Yes (larygospasm required re-intubation post op hernia 2013) Hx Malignant Hyperthermia: No Meds Allergies/Adverse Reactions: Allergies Allergy/AdvReac Type Severity Reaction Status Date / Time No Known Allergies Allergy Verified 03/29/17 09:41 - Medications Medications: Current Medications Amlodipine Besylate (Norvasc) 10 mg PO DAILY [facility] Last Admin: 03/31/17 12:51 Dose: 10 mg Dextrose (Dextrose 50%) 0 ml IV STAT PRN; Protocol PRN Reason: Hypoglycemia Protocol Dextrose (Glutose 15) 0 gm PO ONCE PRN; Protocol PRN Reason: Hypoglycemia Protocol Docusate Sodium (Colace) 100 mg PO TID [facility] Last Admin: 03/31/17 18:20 Dose: Not Given Enoxaparin Sodium (Lovenox) 40 mg SC DAILY [facility] Last Admin: 03/31/17 12:46 Dose: 40 mg Ergocalciferol (Drisdol 50,000 Intl Units Cap) 1 cap PO Q7D [facility] Last Admin: 03/31/17 12:43 Dose: 1 cap Famotidine (Pepcid) 20 mg PO BID [facility] Last Admin: 03/31/17 10:00 Dose: Not Given Furosemide (Lasix) 20 mg PO DAILY [facility] Last Admin: 03/31/17 12:57 Dose: Not Given Gabapentin (Neurontin) 100 mg PO TID [facility] Last Admin: 03/31/17 16:19 Dose: 100 mg Glucagon (Glucagen Diagnostic Kit) 0 mg IM STAT PRN; Protocol PRN Reason: Hypoglycemia Protocol Hydromorphone HCl (Dilaudid) 1 mg IVP Q4H PRN PRN Reason: Pain, severe (8-10) Dextrose (Dextrose 5% In Water 1000 Ml) 1,000 mls @ 0 mls/hr IV .Q0M PRN; Protocol; Per Protocol PRN Reason: Hypoglycemia Protocol Insulin Human Regular (Novolin R) 0 unit SC ACHS [facility] PRN Reason: Protocol Last Admin: 03/31/17 16:59 Dose: Not Given Metformin HCl (Glucophage) 1,000 mg PO BID [facility] Last Admin: 03/31/17 17:16 Dose: 1,000 mg Morphine Sulfate (Morphine) 2 mg IVP Q4 PRN PRN Reason: Pain, moderate (4-7) Last Admin: 03/31/17 16:56 Dose: 2 mg Oxycodone HCl (Oxycontin Extended Release Tab) 10 mg PO Q12 [facility] Stop: 04/03/17 10:01 Last Admin: 03/31/17 10:21 Dose: 10 mg Sitagliptin Phosphate (Januvia) 50 mg PO DAILY [facility] Last Admin: 03/31/17 08:59 Dose: 50 mg Physical Exam - Constitutional Appears: Non-toxic - Head Exam Head Exam: NORMAL INSPECTION - Eye Exam Eye Exam: Normal appearance - ENT Exam ENT Exam: Mucous Membranes Moist - Neck Exam Neck exam: Positive for: Normal Inspection - Respiratory Exam Respiratory Exam: NORMAL BREATHING PATTERN - Cardiovascular Exam Cardiovascular Exam: REGULAR RHYTHM - GI/Abdominal Exam GI & Abdominal Exam: Normal Bowel Sounds - Rectal Exam Rectal Exam: Deferred - Extremities Exam Extremities exam: Negative for: pedal edema - Back Exam Back exam: NORMAL INSPECTION - Neurological Exam Neurological exam: Alert, Oriented x3 - Psychiatric Exam Psychiatric exam: Normal Affect - Skin Skin Exam: Normal Color Results - Vital Signs Recent Vital Signs: Last Vital Signs Temp 98.1 F 03/31/17 16:00 Pulse 85 03/31/17 12:00 Resp 16 03/31/17 12:00 BP 120/74 03/31/17 12:00 Pulse Ox 93 L 03/31/17 08:00 - Labs Result Diagrams: 03/31/17 06:18 03/31/17 06:18 Labs: Laboratory Results - last 24 hr 03/30/17 03/31/17 03/31/17 21:11 06:18 06:18 WBC RBC Hgb Hct MCV MCH MCHC RDW Plt Count MPV Sodium 136 Potassium 4.0 Chloride 99 Carbon Dioxide 28 Anion Gap 13 BUN 11 Creatinine 0.5 L Est GFR ( Amer) > 60 Est GFR (Non-Af Amer) > 60 POC Glucose (mg/dL) 117 H Random Glucose 135 H Hemoglobin A1c Calcium 8.7 Total Bilirubin 1.1 AST 28 ALT 44 Alkaline Phosphatase 102 Total Protein 7.3 Albumin 4.1 Globulin 3.2 Albumin/Globulin Ratio 1.3 25-OH Vitamin D Total 17.1 L 03/31/17 03/31/17 03/31/17 06:18 06:18 07:58 WBC 12.4 H RBC 5.26 Hgb 16.4 Hct 48.5 MCV 92.2 MCH 31.1 H MCHC 33.7 RDW 13.7 Plt Count 234 MPV 9.7 Sodium Potassium Chloride Carbon Dioxide Anion Gap BUN Creatinine Est GFR ( Amer) Est GFR (Non-Af Amer) POC Glucose (mg/dL) 130 H Random Glucose Hemoglobin A1c 7.5 H Calcium Total Bilirubin AST ALT Alkaline Phosphatase Total Protein Albumin Globulin Albumin/Globulin Ratio 25-OH Vitamin D Total 03/31/17 03/31/17 11:54 16:18 WBC RBC Hgb Hct MCV MCH MCHC RDW Plt Count MPV Sodium Potassium Chloride Carbon Dioxide Anion Gap BUN Creatinine Est GFR ( Amer) Est GFR (Non-Af Amer) POC Glucose (mg/dL) 126 H 127 H Random Glucose Hemoglobin A1c Calcium Total Bilirubin AST ALT Alkaline Phosphatase Total Protein Albumin Globulin Albumin/Globulin Ratio 25-OH Vitamin D Total - EKG Data EKG Interpreted by: Myself EKG shows normal: Sinus rhythm Assessment & Plan (1) Closed right hip fracture Assessment and Plan: I reviewed the echocardiogram with the patient. Left ventricular function is normal. There are no regional wall motion abnormalties and valvular function is normal. The patient is medically optimized for surgery. Status: Acute (2) HTN (hypertension) Assessment and Plan: blood pressure control Status: Acute (3) Diabetes mellitus Assessment and Plan: blood sugar control Status: Acute
[2017-04-01] MEDS: HYDROmorphone 1 mg/ml ISec IVP PRN ×4 (01:56→19:52)
[2017-04-01 04:44] LABS: BASO # 0.1 K/uL (0.0-0.2); BASO % 0.6 % (0.0-2.0); EOS # 0.2 K/uL (0.0-0.7); EOS % 1.9 % (0.0-4.0); HEMATOCRIT 45.3 % (35.0-51.0); LYMPH % 20.9 % (20.0-40.0); MEAN CELL VOLUME 91.3 fL (80.0-94.0); MEAN CORPUSCULAR HEMOGLOBIN 31.2 pg (27.0-31.0); MEAN CORPUSCULAR HGB CONC 34.2 g/dL (33.0-37.0); MEAN PLATELET VOLUME 9.1 fL (7.2-11.7); MONO # 0.9 K/uL (0.0-0.8); MONO % 9.2 % (0.0-10.0); RED CELL DISTRIBUTION WIDTH 13.4 % (11.5-14.5); WHITE BLOOD COUNT 9.6 K/uL (4.8-10.8)
[2017-04-01 04:57] LABS: ALB/GLOB RATIO 1.3 (1.0-2.1); ALKALINE PHOSPHATASE 95 U/L (38-126); ALT/SGPT 38 U/L (21-72); AST/SGOT 21 U/L (17-59); BILIRUBIN,TOTAL 0.9 mg/dL (0.2-1.3); BLOOD UREA NITROGEN 12 mg/dL (9-20); CALCIUM 8.5 mg/dl (8.6-10.4); CARBON DIOXIDE 30 mmol/L (22-30); CHLORIDE 100 mmol/L (98-107); GFR AFRICAN-AMERICAN > 60; GLUCOSE,RANDOM 118 mg/dL (75-110); POTASSIUM 3.7 mmol/L (3.6-5.2); SODIUM 139 mmol/L (132-148); TOTAL PROTEIN 6.7 g/dL (6.3-8.3)
[2017-04-01] MEDS: (Novolin R) Insulin Human Regular 100 units/ml vial SC SCH ×4 (07:30→22:00)
[2017-04-01] MEDS: Enoxaparin 40 mg Syringe SC SCH (11:39)
--- NOTE | 2017-04-01 17:22 | CP.PCM.PN ---
Subjective - Date & Time of Evaluation Date of Evaluation: 04/01/17 Time of Evaluation: 05:10 - Subjective Subjective: S- severe pain and rstricted R hip ROM Objective - Vital Signs/Intake and Output Vital Signs (last 24 hours): Temp Pulse Resp BP Pulse Ox 97.9 F 85 20 109/67 94 L 04/01/17 08:03 04/01/17 05:58 04/01/17 05:58 04/01/17 05:58 04/01/17 05:58 Intake and Output: 04/01/17 04/01/17 06:59 18:59 Intake Total 240 Output Total 800 Balance -560 - Medications Medications: Current Medications Amlodipine Besylate (Norvasc) 10 mg PO DAILY [facility] Last Admin: 04/01/17 11:47 Dose: 10 mg Dextrose (Dextrose 50%) 0 ml IV STAT PRN; Protocol PRN Reason: Hypoglycemia Protocol Dextrose (Glutose 15) 0 gm PO ONCE PRN; Protocol PRN Reason: Hypoglycemia Protocol Docusate Sodium (Colace) 100 mg PO TID [facility] Last Admin: 04/01/17 11:59 Dose: Not Given Enoxaparin Sodium (Lovenox) 40 mg SC DAILY [facility] Last Admin: 04/01/17 11:39 Dose: 40 mg Ergocalciferol (Drisdol 50,000 Intl Units Cap) 1 cap PO Q7D [facility] Last Admin: 03/31/17 12:43 Dose: 1 cap Famotidine (Pepcid) 20 mg PO BID [facility] Last Admin: 04/01/17 10:00 Dose: Not Given Furosemide (Lasix) 20 mg PO DAILY [facility] Last Admin: 04/01/17 11:44 Dose: Not Given Gabapentin (Neurontin) 100 mg PO TID [facility] Last Admin: 04/01/17 15:43 Dose: 100 mg Glucagon (Glucagen Diagnostic Kit) 0 mg IM STAT PRN; Protocol PRN Reason: Hypoglycemia Protocol Hydromorphone HCl (Dilaudid) 1 mg IVP Q4H PRN PRN Reason: Pain, severe (8-10) Last Admin: 04/01/17 13:58 Dose: 1 mg Dextrose (Dextrose 5% In Water 1000 Ml) 1,000 mls @ 0 mls/hr IV .Q0M PRN; Protocol; Per Protocol PRN Reason: Hypoglycemia Protocol Insulin Human Regular (Novolin R) 0 unit SC ACHS [facility] PRN Reason: Protocol Last Admin: 04/01/17 11:30 Dose: Not Given Metformin HCl (Glucophage) 1,000 mg PO BID [facility] Last Admin: 04/01/17 10:00 Dose: 1,000 mg Morphine Sulfate (Morphine) 2 mg IVP Q4 PRN PRN Reason: Pain, moderate (4-7) Last Admin: 04/01/17 11:00 Dose: 2 mg Oxycodone HCl (Oxycontin Extended Release Tab) 10 mg PO Q12 [facility] Stop: 04/03/17 10:01 Last Admin: 03/31/17 21:55 Dose: 10 mg Sitagliptin Phosphate (Januvia) 50 mg PO DAILY [facility] Last Admin: 04/01/17 11:35 Dose: 50 mg - Labs Labs: 04/01/17 04:39 04/01/17 04:39 PT 12.2 SECONDS (9.7-12.2) 03/29/17 12:07 INR 1.1 03/29/17 12:07 APTT 32 SECONDS (21-34) 03/29/17 12:07 - Additional Findings Additional findings: Objective systemic- endomorphic male systremic exam -grossly wnl Musculoskekeltal stance/gait defrred pt with evidence for leg length ineqaulity n/v intact ROM severely restricted +flex contracture ROM restricted internal rotataion Xray- sevre avn witjh superimposed djd R hip Assessment and Plan - Assessment and Plan (Free Text) Assessment: A- AVN WITH SUPERIMPOSED SEVERE DEGENERATIVE CHNAGES p- PROS,CONS RISKS AND BENEFITS of thr discussed at length with pt possibility of mechanical faiulure/infection/thromboembolic disease/possibility of secondary or tertiary surgery discussed possibility of leg length inequality discusses p[ossibility of secondary opr tewrtiary surgery discussed possibility of infection dislocation discussed at length NO PROMISES OR GUARTANTEES
[2017-04-02] MEDS: HYDROmorphone 1 mg/ml ISec IVP PRN ×6 (01:06→23:49)
[2017-04-02 07:44] LABS: BASO % 0.5 % (0.0-2.0); EOS # 0.1 K/uL (0.0-0.7); EOS % 1.3 % (0.0-4.0); HEMATOCRIT 45.3 % (35.0-51.0); LYMPH # 1.5 K/uL (1.0-4.3); LYMPH % 15.3 % (20.0-40.0); MEAN CELL VOLUME 91.3 fL (80.0-94.0); MEAN CORPUSCULAR HEMOGLOBIN 31.3 pg (27.0-31.0); MEAN CORPUSCULAR HGB CONC 34.3 g/dL (33.0-37.0); MEAN PLATELET VOLUME 9.7 fL (7.2-11.7); MONO # 0.7 K/uL (0.0-0.8); MONO % 7.9 % (0.0-10.0); NRBC % 0.2 % (0.0-2.0); RED CELL DISTRIBUTION WIDTH 13.1 % (11.5-14.5); WHITE BLOOD COUNT 9.5 K/uL (4.8-10.8)
[2017-04-02] MEDS: (Novolin R) Insulin Human Regular 100 units/ml vial SC SCH ×4 (07:48→22:23)
[2017-04-02 07:54] LABS: ALB/GLOB RATIO 1.3 (1.0-2.1); ALKALINE PHOSPHATASE 103 U/L (38-126); ALT/SGPT 43 U/L (21-72); AST/SGOT 25 U/L (17-59); BILIRUBIN,TOTAL 0.8 mg/dL (0.2-1.3); BLOOD UREA NITROGEN 12 mg/dL (9-20); CALCIUM 8.4 mg/dl (8.6-10.4); CARBON DIOXIDE 29 mmol/L (22-30); CHLORIDE 98 mmol/L (98-107); GFR AFRICAN-AMERICAN > 60; GLUCOSE,RANDOM 124 mg/dL (75-110); POTASSIUM 3.5 mmol/L (3.6-5.2); SODIUM 135 mmol/L (132-148); TOTAL PROTEIN 6.8 g/dL (6.3-8.3)
[2017-04-03] MEDS: HYDROmorphone 1 mg/ml ISec IVP PRN ×3 (06:33→23:07)
--- NOTE | 2017-04-03 07:08 | PN ---
DATE: 04/02/2017 Mr. Madden is complaining of hip pain, given Dilaudid for pain. Patient is cleared for OR tomorrow. Nora Logan MD
[2017-04-03 07:24] LABS: BASO % 0.5 % (0.0-2.0); EOS # 0.2 K/uL (0.0-0.7); HEMATOCRIT 44.8 % (35.0-51.0); LYMPH # 1.4 K/uL (1.0-4.3); LYMPH % 15.2 % (20.0-40.0); MEAN CELL VOLUME 91.5 fL (80.0-94.0); MEAN CORPUSCULAR HEMOGLOBIN 31.3 pg (27.0-31.0); MEAN CORPUSCULAR HGB CONC 34.2 g/dL (33.0-37.0); MEAN PLATELET VOLUME 9.1 fL (7.2-11.7); MONO # 0.9 K/uL (0.0-0.8); MONO % 9.6 % (0.0-10.0); NRBC % 0.2 % (0.0-2.0); RED CELL DISTRIBUTION WIDTH 13.2 % (11.5-14.5); WHITE BLOOD COUNT 9.4 K/uL (4.8-10.8)
[2017-04-03] MEDS ORDERED: ceFAZolin IV 2 gm in Dextrose 2 GM/50 ML BAG IVPB ONE (07:37)
[2017-04-03] MEDS ORDERED: Lactated Ringer's 1,000 ML IV ONE ×4 (07:40→11:50)
[2017-04-03] MEDS ORDERED: Midazolam 2 MG/2 ML VIAL ONE (07:41)
[2017-04-03] MEDS ORDERED: Propofol 10 mg/ml Inj (20 ML) ONE (07:41)
[2017-04-03] MEDS ORDERED: Rocuronium 10 mg/ml (10 ml) ONE ×2 (07:45→08:53)
[2017-04-03] MEDS ORDERED: Succinylcholine Chloride 20 mg/ml Syr (5 ml) IV ONE (07:45)
[2017-04-03 07:56] LABS: ALB/GLOB RATIO 1.3 (1.0-2.1); ALKALINE PHOSPHATASE 99 U/L (38-126); ALT/SGPT 41 U/L (21-72); AST/SGOT 28 U/L (17-59); BILIRUBIN,TOTAL 0.8 mg/dL (0.2-1.3); BLOOD UREA NITROGEN 12 mg/dL (9-20); CALCIUM 8.5 mg/dl (8.6-10.4); CARBON DIOXIDE 33 mmol/L (22-30); CHLORIDE 99 mmol/L (98-107); GFR AFRICAN-AMERICAN > 60; GLUCOSE,RANDOM 131 mg/dL (75-110); SODIUM 137 mmol/L (132-148); TOTAL PROTEIN 6.9 g/dL (6.3-8.3)
[2017-04-03] MEDS: (Novolin R) Insulin Human Regular 100 units/ml vial SC SCH ×4 (08:03→23:45)
[2017-04-03] MEDS ORDERED: Bacitracin 150,000 UNIT in Sodium Chloride 0.9% Irrig 3,000 ML IR SCH (09:15)
--- NOTE | 2017-04-03 09:40 | CP.PCM.PN ---
Subjective - Date & Time of Evaluation Date of Evaluation: 04/03/17 Time of Evaluation: 09:40 - Subjective Subjective: PGY2 Note for Dr. Logan; all management as per Dr. Logan Pt seen and examined at bedside; is for hip surgery total hip replacement; will f/u with ortho Objective - Vital Signs/Intake and Output Vital Signs (last 24 hours): Temp Pulse Resp BP Pulse Ox 98 F 86 20 117/87 97 04/02/17 23:25 04/02/17 23:25 04/02/17 23:25 04/02/17 23:25 04/02/17 23:25 Intake and Output: 04/03/17 04/03/17 06:59 18:59 Intake Total 200 50 Output Total 3 Balance 197 50 - Medications Medications: Current Medications Amlodipine Besylate (Norvasc) 10 mg PO DAILY [facility] Last Admin: 04/03/17 09:11 Dose: Not Given Dextrose (Dextrose 50%) 0 ml IV STAT PRN; Protocol PRN Reason: Hypoglycemia Protocol Dextrose (Glutose 15) 0 gm PO ONCE PRN; Protocol PRN Reason: Hypoglycemia Protocol Docusate Sodium (Colace) 100 mg PO TID [facility] Last Admin: 04/03/17 09:09 Dose: Not Given Ergocalciferol (Drisdol 50,000 Intl Units Cap) 1 cap PO Q7D [facility] Last Admin: 03/31/17 12:43 Dose: 1 cap Famotidine (Pepcid) 20 mg PO BID [facility] Last Admin: 04/03/17 09:11 Dose: Not Given Furosemide (Lasix) 20 mg PO DAILY [facility] Last Admin: 04/03/17 09:10 Dose: Not Given Gabapentin (Neurontin) 100 mg PO TID [facility] Last Admin: 04/03/17 09:10 Dose: Not Given Glucagon (Glucagen Diagnostic Kit) 0 mg IM STAT PRN; Protocol PRN Reason: Hypoglycemia Protocol Hydromorphone HCl (Dilaudid) 1 mg IVP Q3H PRN PRN Reason: Pain, severe (8-10) Last Admin: 04/03/17 06:33 Dose: 1 mg Bacitracin 150,000 unit/ (Sodium Chloride) 3,000 mls @ 3,000 mls/hr IR .Q1H [facility] Stop: 04/03/17 10:14 Insulin Human Regular (Novolin R) 0 unit SC ACHS [facility] PRN Reason: Protocol Last Admin: 04/03/17 08:03 Dose: Not Given Metformin HCl (Glucophage) 1,000 mg PO BID [facility] Last Admin: 04/03/17 09:10 Dose: Not Given Morphine Sulfate (Morphine) 2 mg IVP Q4 PRN PRN Reason: Pain, moderate (4-7) Last Admin: 04/03/17 03:16 Dose: 2 mg Oxycodone HCl (Oxycontin Extended Release Tab) 10 mg PO Q12 [facility] Stop: 04/03/17 10:01 Last Admin: 03/31/17 21:55 Dose: 10 mg Sitagliptin Phosphate (Januvia) 50 mg PO DAILY [facility] Last Admin: 04/03/17 09:10 Dose: Not Given - Labs Labs: 04/03/17 07:14 04/03/17 07:14 PT 12.2 SECONDS (9.7-12.2) 03/29/17 12:07 INR 1.1 03/29/17 12:07 APTT 32 SECONDS (21-34) 03/29/17 12:07 - Constitutional Appears: Non-toxic - Head Exam Head Exam: ATRAUMATIC - Eye Exam Eye Exam: EOMI - ENT Exam ENT Exam: Mucous Membranes Moist - Respiratory Exam Respiratory Exam: Clear to Ausculation Bilateral - Cardiovascular Exam Cardiovascular Exam: REGULAR RHYTHM - Back Exam Back Exam: absent: CVA tenderness (L), CVA tenderness (R) - Neurological Exam Neurological Exam: Awake - Skin Skin Exam: Warm Assessment and Plan - Assessment and Plan (Free Text) Assessment: Right hip fracture;acute 04/03: patient was in OR; will examine after; pain control as per Ortho; Dr. Grace 03/31: Patient looks very comfortable in the bed, however when asked he states his medication does not help for pain, consulted pain management per reccs of the ortho team, continue with Dilauded, added Toradol, and morphine q4h prn for moderate pain. Dr. Betancourt consulted for cardiology risk assessment, surgery planned for Monday. Echo shows normal EF. Xray showed right femoral head fracture with possible avascular necrosis Ortho Dr. Buitrago consulted, help appreciated. Plan for total hip replacement on Monday. Vicodin 5/300mg PO q8H PRN. Dilaudid 1mg IV q4H pRN; as per ortho patient should have minimal narcotics patient was deemed medically optimized for surgery as per cardiology HTN;chronic Continue Norvasc 10mg PO daily. DM Continue Metformin 1000mg PO BID, Januvia 50mg PO daily and Neurontin 100mg PO TID. A1C 7.5 Prophylactic measure Lovenox Pepcid Management as 0per Dr. Logan.
[2017-04-03] MEDS ORDERED: Absorbable Gelatin Sponge Size 100 ONE (10:30)
[2017-04-03] MEDS ORDERED: Neostigmine Methylsulfate 3mg/3ml Syringe IV ONE (10:31)
[2017-04-03] MEDS ORDERED: Thrombin Topical 5,000 IU Spray Kit ONE (10:31)
[2017-04-03] MEDS ORDERED: Morphine 4 MG/ML VIAL ONE ×2 (10:54→11:01)
--- NOTE | 2017-04-03 11:06 | PCM.SURG1 ---
Surgeon's Initial Post Op Note - Surgeon's Notes Surgeon: Iftikhar Wood Miller: YENIFER Rincon Type of Anesthesia: General Endo Anesthesia Administered By: DR Hiro Zamora Pre-Operative Diagnosis: Severe osteoarthritis R hip. Avascular Necrosis R hip Operative Findings: Primary Osteoarthritis R hip. Avascular necrosis R hip. posttraumatic synovits R hip Post-Operative Diagnosis: as above Operation Performed: R THR- anterior approach. femoral neck osteotomy. arthrotomy/synovectomy. release iliopsoas tendon. autograft bone graft to acetabulum Specimen/Specimens Removed: bobne/synovium/cartilage Estimated Blood Loss: EBL {In ML}: 220 Blood Products Given: N/A Drains Used: No Drains Post-Op Condition: Good Date of Surgery/Procedure: 04/03/17 Time of Surgery/Procedure: 08:35 (time in room/anetshesia indcution [id number])
[2017-04-03] MEDS: HYDROmorphone 0.5 mg/0.5 ml ISec IVP PRN ×4 (11:22→11:56)
--- NOTE | 2017-04-03 11:51 | RAD ---
PROCEDURE: Intraoperative Fluoroscopy. HISTORY: RT. HIP ARTHRITITS FINDINGS: Fluoroscopic assistance was provided for right hip arthroplasty.
--- NOTE | 2017-04-03 12:53 | RAD ---
PROCEDURE: Right Hip Radiographs. HISTORY: pt in pacu s/p THR COMPARISON: 03/29/2017 FINDINGS: BONES: Status post right total hip replacement. Prosthesis in grossly appropriate position. No dislocation. Please note that there is linear lucency extending through the cortex distal to the distal tip of the femoral prosthesis not evident on preoperative films. . Concerning for nondisplaced postoperative fracture. JOINTS: Normal. SOFT TISSUES: Normal. OTHER FINDINGS: None. IMPRESSION: Status post right total hip replacement. Possible nondisplaced fracture distal to the distal tip of the femoral prosthesis.
[2017-04-03] MEDS: Sodium Chloride 0.9% 1,000 ML IV SCH (13:58)
[2017-04-03 14:29] VITALS: RESP 20
--- NOTE | 2017-04-03 15:24 | CP.PCM.PN ---
Subjective - Date & Time of Evaluation Date of Evaluation: 04/03/17 Time of Evaluation: 15:22 - Subjective Subjective: Post operative imaging reviewed with Dr. Buitrago right hip s/p THR Dr. Buitrago states this is not fracture, doesn't propagate through cortex, and is likely scoring during the reaming process. He says patient can continue with PT and TTWB RLE. Orders placed. Objective - Vital Signs/Intake and Output Vital Signs (last 24 hours): Temp Pulse Resp BP Pulse Ox 98 F 91 H 20 119/74 95 04/03/17 13:30 04/03/17 13:30 04/03/17 13:30 04/03/17 13:30 04/03/17 13:30 Intake and Output: 04/03/17 04/03/17 06:59 18:59 Intake Total 200 550 Output Total 3 Balance 197 550 - Medications Medications: Current Medications Acetaminophen (Tylenol 325mg Tab) 975 mg PO Q8 [facility] Last Admin: 04/03/17 14:53 Dose: Not Given Amlodipine Besylate (Norvasc) 10 mg PO DAILY [facility] Last Admin: 04/03/17 09:11 Dose: Not Given Dextrose (Dextrose 50%) 0 ml IV STAT PRN; Protocol PRN Reason: Hypoglycemia Protocol Dextrose (Glutose 15) 0 gm PO ONCE PRN; Protocol PRN Reason: Hypoglycemia Protocol Docusate Sodium (Colace) 100 mg PO TID [facility] Last Admin: 04/03/17 13:56 Dose: 100 mg Ergocalciferol (Drisdol 50,000 Intl Units Cap) 1 cap PO Q7D [facility] Last Admin: 03/31/17 12:43 Dose: 1 cap Famotidine (Pepcid) 20 mg PO BID [facility] Last Admin: 04/03/17 09:11 Dose: Not Given Furosemide (Lasix) 20 mg PO DAILY [facility] Last Admin: 04/03/17 09:10 Dose: Not Given Gabapentin (Neurontin) 200 mg PO TID [facility] Last Admin: 04/03/17 13:56 Dose: 200 mg Glucagon (Glucagen Diagnostic Kit) 0 mg IM STAT PRN; Protocol PRN Reason: Hypoglycemia Protocol Hydromorphone HCl (Dilaudid) 1 mg IVP Q3H PRN PRN Reason: Pain, severe (8-10) Last Admin: 04/03/17 06:33 Dose: 1 mg Cefazolin Sodium/Dextrose (Ancef Iv 2 Gm Duplex) 2 gm in 50 mls @ 100 mls/hr IVPB Q8H [facility] Stop: 04/04/17 00:29 Sodium Chloride (Sodium Chloride 0.9%) 1,000 mls @ 80 mls/hr IV .[id number] [facility] Stop: 04/04/17 12:29 Last Admin: 04/03/17 13:58 Dose: 80 mls/hr Insulin Human Regular (Novolin R) 0 unit SC ACHS [facility] PRN Reason: Protocol Last Admin: 04/03/17 12:30 Dose: Not Given Metformin HCl (Glucophage) 1,000 mg PO BID [facility] Last Admin: 04/03/17 09:10 Dose: Not Given Sitagliptin Phosphate (Januvia) 50 mg PO DAILY [facility] Last Admin: 04/03/17 09:10 Dose: Not Given - Labs Labs: 04/03/17 07:14 04/03/17 07:14 PT 12.2 SECONDS (9.7-12.2) 03/29/17 12:07 INR 1.1 03/29/17 12:07 APTT 32 SECONDS (21-34) 03/29/17 12:07 Assessment and Plan (1) Avascular necrosis of femur head, right Status: Chronic (2) Primary osteoarthritis of right hip Status: Chronic (3) Closed fracture of head of right femur Status: Acute
[2017-04-03] MEDS: ceFAZolin IV 2 gm in Dextrose 2 GM/50 ML BAG IVPB SCH (23:08)
[2017-04-04] MEDS: Sodium Chloride 0.9% 1,000 ML IV SCH ×2 (00:14→06:50)
[2017-04-04] MEDS: HYDROmorphone 1 mg/ml ISec IVP PRN ×7 (01:53→22:04)
[2017-04-04] MEDS: ceFAZolin IV 2 gm in Dextrose 2 GM/50 ML BAG IVPB SCH (06:01)
[2017-04-04 07:15] LABS: HEMATOCRIT 38.6 % (35.0-51.0); MEAN CELL VOLUME 92.2 fL (80.0-94.0); MEAN CORPUSCULAR HEMOGLOBIN 30.7 pg (27.0-31.0); MEAN CORPUSCULAR HGB CONC 33.3 g/dL (33.0-37.0); MEAN PLATELET VOLUME 9.1 fL (7.2-11.7); RED CELL DISTRIBUTION WIDTH 13.1 % (11.5-14.5); WHITE BLOOD COUNT 14.6 K/uL (4.8-10.8)
--- NOTE | 2017-04-04 07:54 | CP.PCM.PN ---
Subjective - Date & Time of Evaluation Date of Evaluation: 04/04/17 Time of Evaluation: 09:29 - Subjective Subjective: PGY2 Medicine Note for Dr. Logan; all management as per Dr. Logan Patient seen and examined at bedside with physical therapy team; the patient is in tolerable amount of pain as is expected after hip surgery; the patient is requesting increased pain medication but it was advised to him to stay at the current dose given risk of depedence; will give toradol and increase gabapentin ; stressed iimportance of DVT prophylaxis to patient even upon discharge. Objective - Vital Signs/Intake and Output Vital Signs (last 24 hours): Temp Pulse Resp BP Pulse Ox 98.7 F 91 H 20 115/73 96 04/04/17 04:05 04/04/17 04:05 04/04/17 04:05 04/04/17 04:05 04/04/17 04:05 Intake and Output: 04/04/17 04/04/17 06:59 18:59 Intake Total 1548 Balance 1548 - Medications Medications: Current Medications Acetaminophen (Tylenol 325mg Tab) 975 mg PO Q8 [facility] Last Admin: 04/04/17 05:58 Dose: 975 mg Amlodipine Besylate (Norvasc) 10 mg PO DAILY [facility] Last Admin: 04/03/17 09:11 Dose: Not Given Dextrose (Dextrose 50%) 0 ml IV STAT PRN; Protocol PRN Reason: Hypoglycemia Protocol Dextrose (Glutose 15) 0 gm PO ONCE PRN; Protocol PRN Reason: Hypoglycemia Protocol Docusate Sodium (Colace) 100 mg PO TID [facility] Last Admin: 04/03/17 18:05 Dose: Not Given Enoxaparin Sodium (Lovenox) 40 mg SC DAILY [facility] Ergocalciferol (Drisdol 50,000 Intl Units Cap) 1 cap PO Q7D [facility] Last Admin: 03/31/17 12:43 Dose: 1 cap Famotidine (Pepcid) 20 mg PO BID [facility] Last Admin: 04/03/17 18:04 Dose: 20 mg Furosemide (Lasix) 20 mg PO DAILY [facility] Last Admin: 04/03/17 09:10 Dose: Not Given Gabapentin (Neurontin) 200 mg PO TID [facility] Last Admin: 04/03/17 18:05 Dose: 200 mg Glucagon (Glucagen Diagnostic Kit) 0 mg IM STAT PRN; Protocol PRN Reason: Hypoglycemia Protocol Hydromorphone HCl (Dilaudid) 1 mg IVP Q3H PRN PRN Reason: Pain, severe (8-10) Last Admin: 04/04/17 04:43 Dose: 1 mg Sodium Chloride (Sodium Chloride 0.9%) 1,000 mls @ 80 mls/hr IV .[id number] [facility] Stop: 04/04/17 12:29 Last Admin: 04/04/17 06:50 Dose: 80 mls/hr Insulin Human Regular (Novolin R) 0 unit SC ACHS [facility] PRN Reason: Protocol Last Admin: 04/03/17 23:45 Dose: Not Given Metformin HCl (Glucophage) 1,000 mg PO BID [facility] Last Admin: 04/03/17 18:04 Dose: 1,000 mg Sitagliptin Phosphate (Januvia) 50 mg PO DAILY [facility] Last Admin: 04/03/17 09:10 Dose: Not Given - Labs Labs: 04/04/17 07:05 04/03/17 07:14 PT 12.2 SECONDS (9.7-12.2) 03/29/17 12:07 INR 1.1 03/29/17 12:07 APTT 32 SECONDS (21-34) 03/29/17 12:07 - Constitutional Appears: Non-toxic - Head Exam Head Exam: ATRAUMATIC - Eye Exam Eye Exam: EOMI - ENT Exam ENT Exam: Mucous Membranes Moist - Neck Exam Neck Exam: Full ROM - Respiratory Exam Respiratory Exam: Clear to Ausculation Bilateral, NORMAL BREATHING PATTERN. absent: Rales, Rhonchi, Wheezes - Cardiovascular Exam Cardiovascular Exam: REGULAR RHYTHM - GI/Abdominal Exam GI & Abdominal Exam: Soft, Normal Bowel Sounds - Back Exam Additional comments: patient was ambulating; albeit with tolerable pain, with physical thereapy when i walked into the room - Neurological Exam Neurological Exam: Alert, Awake, Oriented x3 - Psychiatric Exam Psychiatric exam: Normal Affect - Skin Skin Exam: Warm Assessment and Plan - Assessment and Plan (Free Text) Assessment: Right hip fracture;acute with necrosis of femoral head 04/04: patient will need Eliquis 2.5mg PO BID for next month as per current protocols after orthopedic surgery; patient to receive PT/OT and out of bed and weight bearing as per Ortho; will continue to monitor; patient will need to go to [facility] 04/03: patient was in OR; will examine after; pain control as per Ortho; Dr. Grace 03/31: Patient looks very comfortable in the bed, however when asked he states his medication does not help for pain, consulted pain management per reccs of the ortho team, continue with Dilauded, added Toradol, and morphine q4h prn for moderate pain. Dr. Betancourt consulted for cardiology risk assessment, surgery planned for Monday. Echo shows normal EF. Xray showed right femoral head fracture with possible avascular necrosis Ortho Dr. Buitrago consulted, help appreciated. Plan for total hip replacement on Monday. Dilaudid 1mg IV q3H pRN; as per ortho patient should have minimal narcotics Toradol 15mg IV Q6H; started 04/04; do not continue past 04/09 Tylenol Q6H Gabapentin 300mg TID patient was deemed medically optimized for surgery as per cardiology HTN;chronic Continue Norvasc 10mg PO daily. DM Continue Metformin 1000mg PO BID, Januvia 50mg PO daily and Neurontin 300mg PO TID. A1C 7.5 Prophylactic measure Eliquis 2.5mg PO BID; will need to continue out of hospital for the month as well for DVT/PE Prophylaxis Pepcid Patient does not wish to have any IV/SC injections Dispo Management as 0per Dr. Logan.
[2017-04-04 08:22] LABS: BLOOD UREA NITROGEN 16 mg/dL (9-20); CARBON DIOXIDE 29 mmol/L (22-30); CHLORIDE 99 mmol/L (98-107); GFR AFRICAN-AMERICAN > 60; GLUCOSE,RANDOM 165 mg/dL (75-110); POTASSIUM 3.7 mmol/L (3.6-5.2); SODIUM 135 mmol/L (132-148)
[2017-04-04 08:23] LABS: CALCIUM 7.9 mg/dl (8.6-10.4)
[2017-04-04] MEDS: (Novolin R) Insulin Human Regular 100 units/ml vial SC SCH ×5 (08:28→21:22)
--- NOTE | 2017-04-04 08:35 | RAD ---
PROCEDURE: HISTORY: s/p THR COMPARISON: 04/03/2017 at 1720 hours TECHNIQUE: Six views FINDINGS: The right total hip replacement -acetabular and femoral stem components are similar and aligned normally. Superolateral acetabular spurring consistent with prior osteoarthrosis at the hip is well The previously referenced nondisplaced femoral fracture distal to the femoral prosthetic tip is unchanged. The fracture line appears medullary and may involve just the inner portion of the medial right femoral cortex. No outer peripheral cortical fracture extension suggested. Knee osteoarthrosis-medial femoral tibial compartment most affected. IMPRESSION: Status post right total hip replacement prosthesis alignments anatomical Nondisplaced fracture femoral shaft medullary component mostly -trace medial intra cortical extension. Knee osteoarthrosis
--- NOTE | 2017-04-04 08:38 | RAD ---
PROCEDURE: HISTORY: s/p THR COMPARISON: 04/03/2017 - 1144 hours TECHNIQUE: Five views FINDINGS: The right total hip replacement -acetabular and femoral stem components are similar and aligned normally. Superolateral acetabular spurring consistent with prior osteoarthrosis at the hip is well The previously referenced nondisplaced femoral fracture distal to the femoral prosthetic tip is unchanged. The fracture line appears medullary and may involve just the inner portion of the medial right femoral cortex. No outer peripheral cortical fracture extension suggested. IMPRESSION: Status post right total hip replacement prosthesis alignments anatomical Nondisplaced fracture femoral shaft medullary component mostly - possible trace medial intra cortical extension.
[2017-04-04] MEDS ORDERED: Enoxaparin 40 mg Syringe SC SCH (10:00)
--- NOTE | 2017-04-04 12:11 | CP.PCM.PN ---
Subjective - Date & Time of Evaluation Date of Evaluation: 04/04/17 Time of Evaluation: 13:57 - Subjective Subjective: Patient states he has a lot of pain in his right hip. Patient apparently refused physical therapy. Advised patient that PT/OT/OOB is critical to recovery at this point and that he must participate daily and be out of bed at least once daily. Objective - Vital Signs/Intake and Output Vital Signs (last 24 hours): Temp Pulse Resp BP Pulse Ox 98.5 F 90 20 104/72 95 04/04/17 08:35 04/04/17 08:35 04/04/17 08:35 04/04/17 10:16 04/04/17 08:35 Intake and Output: 04/04/17 04/04/17 06:59 18:59 Intake Total 1548 Balance 1548 - Medications Medications: Current Medications Acetaminophen (Tylenol 325mg Tab) 975 mg PO Q6H [facility] Last Admin: 04/04/17 10:07 Dose: 975 mg Amlodipine Besylate (Norvasc) 10 mg PO DAILY [facility] Last Admin: 04/04/17 10:10 Dose: 10 mg Apixaban (Eliquis) 2.5 mg PO BID [facility] Last Admin: 04/04/17 10:11 Dose: 2.5 mg Dextrose (Dextrose 50%) 0 ml IV STAT PRN; Protocol PRN Reason: Hypoglycemia Protocol Dextrose (Glutose 15) 0 gm PO ONCE PRN; Protocol PRN Reason: Hypoglycemia Protocol Docusate Sodium (Colace) 100 mg PO TID [facility] Last Admin: 04/04/17 10:22 Dose: Not Given Ergocalciferol (Drisdol 50,000 Intl Units Cap) 1 cap PO Q7D [facility] Last Admin: 03/31/17 12:43 Dose: 1 cap Famotidine (Pepcid) 20 mg PO BID [facility] Last Admin: 04/04/17 10:10 Dose: 20 mg Furosemide (Lasix) 20 mg PO DAILY [facility] Last Admin: 04/04/17 10:16 Dose: 20 mg Gabapentin (Neurontin) 300 mg PO TID [facility] Last Admin: 04/04/17 10:10 Dose: 300 mg Glucagon (Glucagen Diagnostic Kit) 0 mg IM STAT PRN; Protocol PRN Reason: Hypoglycemia Protocol Hydromorphone HCl (Dilaudid) 1 mg IVP Q3H PRN PRN Reason: Pain, severe (8-10) Last Admin: 04/04/17 12:07 Dose: 1 mg Sodium Chloride (Sodium Chloride 0.9%) 1,000 mls @ 80 mls/hr IV .[id number] [facility] Stop: 04/04/17 12:29 Last Admin: 04/04/17 06:50 Dose: 80 mls/hr Insulin Human Regular (Novolin R) 0 unit SC ACHS [facility] PRN Reason: Protocol Last Admin: 04/04/17 11:43 Dose: Not Given Ketorolac Tromethamine (Toradol) 15 mg IVP Q6 PRN PRN Reason: Pain, moderate (4-7) Last Admin: 04/04/17 10:08 Dose: 15 mg Metformin HCl (Glucophage) 1,000 mg PO BID [facility] Last Admin: 04/04/17 10:09 Dose: 1,000 mg Sitagliptin Phosphate (Januvia) 50 mg PO DAILY [facility] Last Admin: 04/04/17 10:09 Dose: 50 mg - Labs Labs: 04/04/17 07:05 04/04/17 07:05 PT 12.2 SECONDS (9.7-12.2) 03/29/17 12:07 INR 1.1 03/29/17 12:07 APTT 32 SECONDS (21-34) 03/29/17 12:07 - Extremities Exam Additional comments: +ROM ankle, toes. Sensation intact, +DP/PT pulses calves soft NT neg homans, thigh mildly swollen, soft. scant drainage on dressing Assessment and Plan (1) Avascular necrosis of femur head, right Assessment & Plan: imaging reviewed Dr. Buitrago appears scoring due to reaming will protect WB as precaution cont PT/OT/d/c planning Reinforce importance of PT/OT/OOB VTE proph on eliquis d/w Dr. Buitrago agrees with above Status: Chronic (2) Primary osteoarthritis of right hip Status: Chronic (3) Closed fracture of head of right femur Status: Acute
[2017-04-05] MEDS: HYDROmorphone 1 mg/ml ISec IVP PRN ×5 (01:02→15:43)
[2017-04-05 07:50] LABS: HEMATOCRIT 37.7 % (35.0-51.0); MEAN CORPUSCULAR HEMOGLOBIN 30.7 pg (27.0-31.0); MEAN CORPUSCULAR HGB CONC 33.4 g/dL (33.0-37.0); MEAN PLATELET VOLUME 9.3 fL (7.2-11.7); RED CELL DISTRIBUTION WIDTH 13.3 % (11.5-14.5); WHITE BLOOD COUNT 15.5 K/uL (4.8-10.8)
[2017-04-05] MEDS: (Novolin R) Insulin Human Regular 100 units/ml vial SC SCH ×2 (08:15→11:44)
[2017-04-05 08:34] LABS: BLOOD UREA NITROGEN 15 mg/dL (9-20); CALCIUM 8.2 mg/dl (8.6-10.4); CARBON DIOXIDE 33 mmol/L (22-30); CHLORIDE 97 mmol/L (98-107); GFR AFRICAN-AMERICAN > 60; GLUCOSE,RANDOM 138 mg/dL (75-110); POTASSIUM 4.1 mmol/L (3.6-5.2); SODIUM 135 mmol/L (132-148)
--- NOTE | 2017-04-05 09:29 | CP.PCM.PN ---
Subjective - Date & Time of Evaluation Date of Evaluation: 04/05/17 Time of Evaluation: 10:35 - Subjective Subjective: Medicine Progress Note Patient seen and examined. The patient is complaining of right hip pain. POD # 2 s/p repair of right hip fracture. The patient is not motivated to get out of bed and states that he doesn't want to move because of the pain. Patient was informed of the risks of not being mobile including DVT. Denies fever, chills, nausea, vomiting, chest pain, shortness of breath, and palpitations. Objective - Vital Signs/Intake and Output Vital Signs (last 24 hours): Temp Pulse Resp BP Pulse Ox 98.9 F 68 20 130/80 98 04/05/17 08:08 04/05/17 08:08 04/05/17 08:08 04/05/17 08:08 04/05/17 08:08 Intake and Output: 04/05/17 04/05/17 06:59 18:59 Intake Total 640 Balance 640 - Medications Medications: Current Medications Acetaminophen (Tylenol 325mg Tab) 975 mg PO Q6H [facility] Last Admin: 04/05/17 04:04 Dose: Not Given Amlodipine Besylate (Norvasc) 10 mg PO DAILY [facility] Last Admin: 04/04/17 10:10 Dose: 10 mg Apixaban (Eliquis) 2.5 mg PO BID [facility] Last Admin: 04/04/17 18:26 Dose: 2.5 mg Dextrose (Dextrose 50%) 0 ml IV STAT PRN; Protocol PRN Reason: Hypoglycemia Protocol Dextrose (Glutose 15) 0 gm PO ONCE PRN; Protocol PRN Reason: Hypoglycemia Protocol Docusate Sodium (Colace) 100 mg PO TID [facility] Last Admin: 04/04/17 18:26 Dose: Not Given Ergocalciferol (Drisdol 50,000 Intl Units Cap) 1 cap PO Q7D [facility] Last Admin: 03/31/17 12:43 Dose: 1 cap Famotidine (Pepcid) 20 mg PO BID [facility] Last Admin: 04/04/17 18:26 Dose: 20 mg Furosemide (Lasix) 20 mg PO DAILY [facility] Last Admin: 04/04/17 10:16 Dose: 20 mg Gabapentin (Neurontin) 300 mg PO TID [facility] Last Admin: 04/04/17 18:26 Dose: 300 mg Glucagon (Glucagen Diagnostic Kit) 0 mg IM STAT PRN; Protocol PRN Reason: Hypoglycemia Protocol Hydromorphone HCl (Dilaudid) 1 mg IVP Q3H PRN PRN Reason: Pain, severe (8-10) Last Admin: 04/05/17 06:56 Dose: 1 mg Insulin Human Regular (Novolin R) 0 unit SC ACHS [facility] PRN Reason: Protocol Last Admin: 04/05/17 08:15 Dose: Not Given Ketorolac Tromethamine (Toradol) 15 mg IVP Q6 PRN PRN Reason: Pain, moderate (4-7) Last Admin: 04/04/17 16:15 Dose: 15 mg Metformin HCl (Glucophage) 1,000 mg PO BID [facility] Last Admin: 04/04/17 18:26 Dose: 1,000 mg Sitagliptin Phosphate (Januvia) 50 mg PO DAILY [facility] Last Admin: 04/04/17 10:09 Dose: 50 mg - Labs Labs: 04/05/17 07:10 04/05/17 07:53 PT 12.2 SECONDS (9.7-12.2) 03/29/17 12:07 INR 1.1 03/29/17 12:07 APTT 32 SECONDS (21-34) 03/29/17 12:07 - Constitutional Appears: Non-toxic, No Acute Distress - Head Exam Head Exam: ATRAUMATIC, NORMOCEPHALIC - Eye Exam Eye Exam: EOMI, Normal appearance - ENT Exam ENT Exam: Mucous Membranes Moist - Respiratory Exam Respiratory Exam: Clear to Ausculation Bilateral, NORMAL BREATHING PATTERN. absent: Rhonchi, Wheezes, Respiratory Distress - Cardiovascular Exam Cardiovascular Exam: REGULAR RHYTHM, +S1, +S2 - GI/Abdominal Exam GI & Abdominal Exam: Soft, Normal Bowel Sounds - Extremities Exam Extremities Exam: absent: Pedal Edema Additional comments: Left leg full ROM, 5/5 strength Right leg painful with movement, patient able to move foot without pain - Neurological Exam Neurological Exam: Alert, Awake, CN II-XII Intact, Oriented x3 - Psychiatric Exam Psychiatric exam: Normal Affect, Normal Mood - Skin Skin Exam: Dry, Normal Color, Warm Assessment and Plan - Assessment and Plan (Free Text) Assessment: Right hip fracture;acute with necrosis of femoral head POD #2 s/p Operation Performed: R THR- anterior approach. femoral neck osteotomy. arthrotomy/synovectomy. release iliopsoas tendon. autograft bone graft to acetabulum. Patient will need Eliquis 2.5mg PO BID for next month as per current protocols after orthopedic surgery; patient to receive PT/OT and out of bed and weight bearing as per Ortho; will continue to monitor; patient will need to go to [facility]. Xray showed right femoral head fracture with possible avascular necrosis Ortho Dr. Buitrago consulted, help appreciated. Tylenol Q6H Gabapentin 300mg TID patient was deemed medically optimized for surgery as per cardiology HTN; chronic Well controlled and within normal limits Continue Norvasc 10mg PO daily. Lasix 20mg PO daily ECHO shows normal EF. DM ISS Continue Metformin 1000mg PO BID, Januvia 50mg PO daily and Neurontin 300mg PO TID. HgA1C 7.5 Prophylactic measure Eliquis 2.5mg PO BID; will need to continue out of hospital for the month as well for DVT/PE Prophylaxis Pepcid 20mg PO BID Patient does not wish to have any IV/SC injections Dispo Management as 0arnold Logan.
--- NOTE | 2017-04-05 12:01 | CP.PCM.PN ---
Subjective - Date & Time of Evaluation Date of Evaluation: 04/05/17 Time of Evaluation: 11:58 - Subjective Subjective: Patient refusing ambulation with PT. Advised patient that of expectations following total hip replacement, and that outcomes are dependant on participation in PT. Advised patient he should be out of bed in chair at least once for several hours per day, and explained risks of staying in bed. Patient verbalized understanding. Denies CP/SOB/dizziness. Objective - Vital Signs/Intake and Output Vital Signs (last 24 hours): Temp Pulse Resp BP Pulse Ox 98.9 F 68 20 130/80 98 04/05/17 08:08 04/05/17 08:08 04/05/17 08:08 04/05/17 10:39 04/05/17 08:08 Intake and Output: 04/05/17 04/05/17 06:59 18:59 Intake Total 640 Balance 640 - Medications Medications: Current Medications Acetaminophen (Tylenol 325mg Tab) 975 mg PO Q6H [facility] Last Admin: 04/05/17 10:43 Dose: 975 mg Amlodipine Besylate (Norvasc) 10 mg PO DAILY [facility] Last Admin: 04/05/17 10:40 Dose: 10 mg Apixaban (Eliquis) 2.5 mg PO BID [facility] Last Admin: 04/05/17 10:53 Dose: 2.5 mg Dextrose (Dextrose 50%) 0 ml IV STAT PRN; Protocol PRN Reason: Hypoglycemia Protocol Dextrose (Glutose 15) 0 gm PO ONCE PRN; Protocol PRN Reason: Hypoglycemia Protocol Docusate Sodium (Colace) 100 mg PO TID [facility] Last Admin: 04/05/17 10:39 Dose: 100 mg Ergocalciferol (Drisdol 50,000 Intl Units Cap) 1 cap PO Q7D [facility] Last Admin: 03/31/17 12:43 Dose: 1 cap Famotidine (Pepcid) 20 mg PO BID [facility] Last Admin: 04/05/17 10:40 Dose: 20 mg Furosemide (Lasix) 20 mg PO DAILY [facility] Last Admin: 04/05/17 10:39 Dose: 20 mg Gabapentin (Neurontin) 300 mg PO TID [facility] Last Admin: 04/05/17 10:39 Dose: 300 mg Glucagon (Glucagen Diagnostic Kit) 0 mg IM STAT PRN; Protocol PRN Reason: Hypoglycemia Protocol Hydromorphone HCl (Dilaudid) 1 mg IVP Q3H PRN PRN Reason: Pain, severe (8-10) Last Admin: 04/05/17 10:37 Dose: 1 mg Insulin Human Regular (Novolin R) 0 unit SC ACHS [facility] PRN Reason: Protocol Last Admin: 04/05/17 11:44 Dose: 2 unit Ketorolac Tromethamine (Toradol) 15 mg IVP Q6 PRN PRN Reason: Pain, moderate (4-7) Last Admin: 04/04/17 16:15 Dose: 15 mg Metformin HCl (Glucophage) 1,000 mg PO BID [facility] Last Admin: 04/05/17 10:40 Dose: 1,000 mg Sitagliptin Phosphate (Januvia) 50 mg PO DAILY [facility] Last Admin: 04/05/17 10:39 Dose: 50 mg - Labs Labs: 04/05/17 07:10 04/05/17 07:53 PT 12.2 SECONDS (9.7-12.2) 03/29/17 12:07 INR 1.1 03/29/17 12:07 APTT 32 SECONDS (21-34) 03/29/17 12:07 - Extremities Exam Additional comments: +ROM ankle/toes, sensation intact, +DP/PT pulses, calves sfot NT neg homans, dressing intact, no visible drainage Assessment and Plan (1) Avascular necrosis of femur head, right Assessment & Plan: POD#2 s/p R THR -monitor WBC, afeb, likely reactive labs in am -PT/OT encouraged -VTE proph on eliquis -d/c planning to rehab -d/w Dr. Buitrago, agrees with above Status: Chronic (2) Primary osteoarthritis of right hip Status: Chronic (3) Closed fracture of head of right femur Status: Acute
[2017-04-05 17:00] VITALS: BP 129/80; PULSE 98; TEMP 98.1; O2SAT 95
--- NOTE | 2017-04-09 07:19 | OP ---
PROCEDURE DATE: 04/03/2017 PREOPERATIVE DIAGNOSIS: Severe osteoarthritis of the right hip, rule out avascular necrosis of the right hip. POSTOPERATIVE DIAGNOSES: Primary osteoarthritis of the right hip, avascular necrosis of the right hip, severe synovitis of the right hip. OPERATIVE FINDINGS: As above. OPERATION PERFORMED: 1. Right total hip replacement arthroplasty, anterior approach. 2. Femoral neck osteotomy. 3. Arthrotomy and synovectomy. 4. Release of the iliopsoas tendon. 5. Autograft bone grafting to the acetabulum. SURGEON: Deon Buitrago MD BAND ATTACHER: Inez Freeman, certified registered nursing real estate administrative assistant. SECOND MANAGED CARE MANAGER: A third year medical student. TYPE OF ANESTHESIA: General endotracheal anesthesia. ANESTHESIA ADMINISTERED BY: Dr. Hiro Zamora. SPECIMENS REMOVED: Bone, synovium and cartilage. ESTIMATED BLOOD LOSS: Approximately 220 mL. BLOOD PRODUCTS: No blood products given. DRAINS: No drains. POSTOPERATIVE CONDITION: Stable. DATE OF SURGERY: 04/03/2017 TIME OF SURGERY: Incision time, 8:35, time in the room 7:40. OPERATIVE INDICATION: Hiro Madden is a referral from Dr. Nora Logan. The patient presents to the emergency room at [facility] with severe osteoarthritis, pain and restricted range of motion of the right hip. The patient was unable to ambulate. Past medical and surgical history is otherwise noncontributory. The patient was admitted; medical stabilization was accomplished and the patient was taken to surgery on 04/03/2017. OPERATIVE PROCEDURE: After having obtained informed consent in the above fashion, after thoroughly discussing the pros, cons, risks, and benefits of the surgical approach; the possibility of mechanical failure, infection, thromboembolic disease, secondary or tertiary surgery; the possibility of leg length inequality, nerve injury, intraoperative or postoperative fracture and possibility of revision surgery were discussed. After having obtained informed consent in the above fashion, after having identified the side, site, and procedure and a critical pause/time-out, after the satisfactory induction of the anesthetic, the patient identified as Hiro Madden, was placed in the [facility] positioner for the anterior approach. Prior to prepping and draping, under the surgeon's direction, the fluoroscope was positioned, video images were generated and therapeutic decisions were made therefrom. This having been accomplished, the pathology was noted in the virtual and preoperative planning had been accomplished for the femoral neck osteotomy. This was critical for leg length and it is essentially a secondary separate procedure accomplished at the same sitting. After satisfactory induction of general endotracheal anesthesia by Dr. Hiro Zamora, after having obtained informed consent in the above fashion, after having identified the side, site, and procedure and a critical pause/time-out, after sterilely prepping and draping the right hip in the usual fashion for anterior approach hip surgery, the right lower extremity is prepped and free draped in the usual fashion for lower extremity surgery. An incision was described one fingerbreadth distal to the ASIS and four fingerbreadths distal to that. The incisions inclined distally and posteriorly superficial to the tensor fascia femoris muscle. The skin incision was carried down through the skin and subcutaneous tissue. The muscle was taken down from the fascia of the tensor fascia femoris. This having been accomplished, the Medacta modified Dennys-Opal retractor was placed and the posterior aspect of the rectus femoris muscles was identified and this was carefully elevated as well. The Medacta retractor was placed deep superficial to the hip and in the plane of the hip. The underlying fascia was identified. Prior to this, the fat pad superficial to the reflected head of the rectus femoris was excised. The rectus femoris origin was released. This having been accomplished, the fascia was divided. The underlying anterior branch of the lateral femoral circumflex vessels was identified and this having been accomplished, the anterior lateral femoral circumflex vessels were divided and controlled with suture ligature. This having been accomplished, the capsulotomy was accomplished to the point of the intertrochanteric line having identified the intertrochanteric tubercle. This was elevated and with rotation, the femoral neck osteotomy was accomplished taking great care to protect the greater trochanter. This having been accomplished, the femoral head was removed. Two of traction were used to separate the osteotomy along with an osteotome. The corkscrew was placed and the femoral head was removed. At this point in time, the labrum was identified and the labrum was excised. A thorough synovectomy of the hip joint was accomplished. 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 The osteotomy having been accomplished, again having virtually been planned as a preoperative planning and secondary procedure, attention was turned to the acetabulum. An extensive synovectomy of the acetabulum was accomplished. The pulvinar was excised. Sequential reaming was carried out to the appropriate-sized acetabular component. The reamings were denuded of articular cartilage and autograft bone grafting to the acetabulum was accomplished. The acetabular shell was impacted. Attention was turned to the femur. There were marked contractions of the femur and with external rotation of the hip, the pubofemoral ligament was identified and released. The iliofemoral ligament and the ischiofemoral ligament were released as well. Hemostasis controlled with the Aquamantys. The iliopsoas tendon was identified and with great care taken to avoid injury to the neurocirculatory structures, the iliopsoas tendon was released and at this point in time, with flexion, external rotation and adduction of the cut femoral neck was exposed. The retractors were placed and the femoral neck was delivered into the wound. The bridge of bone between the neck and the trochanter was removed with the bur. Sequential rasping was carried out and broaching to approximately #4 femoral component. Broaching having been accomplished, was accomplished with the -3.5 head and the 28-mm outer bearing for the appropriate size of 56 cup. This having been accomplished, the hip was reduced and found to be stable in all planes. The iliopsoas having been released, the autograft bone grafting to the acetabulum having been accomplished, the shell having been impacted, the femur was again delivered. The appropriate sized femoral stem was impacted with the appropriate size head and neck construct. The outer bearing is a 7 and the dual mobility is reduced. The hip was found to be stable in all planes and under the surgeon's direction, fluoroscope was positioned confirming the bone graft. Thrombin and Gelfoam were used. Hemostasis is controlled with the Aquamantys. Blood loss was approximately 220 mL. There was no drain. No complications. It should be noted that there is a possible nondisplaced crack distal to the femoral stem on impaction, which does not violate the cortex and will just be protected with weightbearing restrictions until healing. The position of the construct is otherwise excellent. The hip having been reduced, the iliopsoas tendon having been released, hemostasis controlled with the Aquamantys and the thrombin and Gelfoam. Closure was in layers, 0-Quill for the fascia over the tensor fascia femoris followed by interrupted 0 Vicryl, 2-0 Vicryl and wagner for skin. A compression dressing was applied. The patient's neurocirculatory status is intact in recovery. Postoperative x-rays again revealed the questionable nondisplaced crack in the distal femur, which is not propagating and stable. This will be protected with toe-touch weightbearing to be on the safe side. It is not even clear if this is a definite nondisplaced crack or fracture. It should be noted that the certified registered nursing real estate administrative assistant, Inez Freeman, was essential for the completion of the operative goal. Deon Buitrago MD
== END 2017-04-05 18:07 | DRG 470 ==
LOC: C.ER 09:37 → C.9E 12:56 → C.9I 03-30 06:14 → C.6T 04-01 18:10
PROVIDERS: ADMIT Internal Medicine Pulmonary Disease; ATTEND Internal Medicine Pulmonary Disease
PROC: 0QU407Z Supplement Right Acetabulum with Autologous Tissue Substitute, Open Approach (ICD-10-PCS; 2017-04-03)
PROC: 0SR90JZ Replacement of Right Hip Joint with Synthetic Substitute, Open Approach (ICD-10-PCS; principal; 2017-04-03 07:45)
DX: M87.9 Osteonecrosis, unspecified (principal); I27.20 Pulmonary hypertension, unspecified; E11.9 Type 2 diabetes mellitus without complications; M89.751 Major osseous defect, right pelvic region and thigh; M16.11 Unilateral primary osteoarthritis, right hip; F17.200 Nicotine dependence, unspecified, uncomplicated; I10 Essential (primary) hypertension; Z79.84 Long term (current) use of oral hypoglycemic drugs; S73.191S Other sprain of right hip, sequela